=== PATIENT | male | born 1970 | race Caucasian/White ===

== ENCOUNTER 2016-12-29 05:59 | Observation (INO) | payer MEDICARE, MEDICAID ==
[2016-12-29] MEDS ORDERED: Acetaminophen TAB* 325 MG PO ONE (06:21)
[2016-12-29] MEDS ORDERED: NS 0.9% 1000 ML* 1,000 ML IV ONE ×2 (06:21→08:43)
[2016-12-29 06:40] LABS: Hematocrit 36 % (42-52); Hemoglobin 11.6 g/dl (14.0-18.0); Mean Corpuscular HGB Conc 33 g/dl (31-36); Mean Corpuscular Hemoglobin 31 pg (27-31); Mean Corpuscular Volume 94 fL (80-94); Mean Platelet Volume 7 um3 (7.4-10.4); Red Blood Count 3.77 10^6/ul (4.0-5.4); Red Cell Distribution Width 13 % (10.5-15); White Blood Count 20.1 10^3/ul (3.5-10.8)
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
[2016-12-29 06:55] LABS: ALT 20 U/L (7-52); AST 40 U/L (13-39); Albumin 4.5 g/dL (3.2-5.2); Alkaline Phosphatase 49 U/L (34-104); Anion Gap 14 mmol/L (2-11); BUN/Creatinine Ratio 21.8 (8-20); Blood Urea Nitrogen 38 mg/dL (6-24); CO2 Carbon Dioxide 18 mmol/L (22-32); Calcium 9.1 mg/dL (8.6-10.3); Chloride 109 mmol/L (101-111); Creatine Kinase 1594 U/L (10-223); EGFR African American 54.1 (>60); EGFR Non-African American 42.1 (>60); Globulin 2.5 g/dL (2-4); Glucose 99 mg/dL (70-100); Magnesium 2.1 mg/dL (1.9-2.7); Potassium 4.5 mmol/L (3.5-5.0); Sodium 141 mmol/L (133-145)
[2016-12-29 07:16] LABS: Alcohol < 10 mg/dL (<10)
[2016-12-29 07:20] LABS: Benzodiazepine Urine Screen None Detected (None Detect)
[2016-12-29 07:25] LABS: Urine Bacteria Absent (Absent); Urine Bilirubin Negative (Negative); Urine Glucose Negative (Negative); Urine Nitrite Negative (Negative)
--- NOTE | 2016-12-29 08:09 | RAD ---
Indication: Altered mental status. Comparison: June 27, 2012 Technique: Noncontrast CT vertex of skull through foramen magnum. Report: The sulci, ventricles, and basal cisterns are normal for age. Pruett matter white matter differentiation is preserved without evidence for edema. No intra or extra axial hemorrhage is detected. Unremarkable orbital contents. Negative for calvarial or skull base fracture. Negative for scalp hematoma. The visualized paranasal sinuses and mastoid air spaces are clear. IMPRESSION: No evidence for traumatic brain injury or acute intracranial process.
--- NOTE | 2016-12-29 08:11 | RAD ---
Indication: Altered mental status. Fever. Comparison: July 26, 2014 Technique: Upright AP chest 0636 hours Report: Elevated lung volumes and patchy rarefaction of the mid to upper lung zone interstitial markings. No pulmonary consolidation, focal pulmonary lesion, pleural effusion, pneumothorax. The heart, pulmonary vasculature, and mediastinal contours are unremarkable. Unremarkable soft tissue contours and osseous structures. IMPRESSION: Stigmata of probable obstructive lung disease and emphysema. No acute cardiopulmonary process evident.
[2016-12-29] MEDS ORDERED: Iodixanol* (CONTRAST) 320 MG/ML 100 ML SDV IV ONE (08:55)
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
[2016-12-29] MEDS: NS 0.9% 1000 ML* 1,000 ML IV SCH ×2 (13:14→21:36)
[2016-12-29 13:37] LABS: Hematocrit 32 % (42-52); Hemoglobin 10.6 g/dl (14.0-18.0); Mean Corpuscular HGB Conc 33 g/dl (31-36); Mean Corpuscular Hemoglobin 31 pg (27-31); Mean Corpuscular Volume 94 fL (80-94); Mean Platelet Volume 7 um3 (7.4-10.4); Red Blood Count 3.44 10^6/ul (4.0-5.4); Red Cell Distribution Width 14 % (10.5-15)
[2016-12-29 13:52] LABS: BUN/Creatinine Ratio 31.1 (8-20); C Reactive Protein 14.87 mg/L (< 5.00); Calcium 8.4 mg/dL (8.6-10.3); EGFR African American 99.1 (>60); EGFR Non-African American 77.1 (>60); Potassium 4.2 mmol/L (3.5-5.0)
[2016-12-29] MEDS ORDERED: Carisoprodol TAB* 350 MG PO PRN (13:52)
[2016-12-29] MEDS: OXYMORPHONE 5 MG PO SCH ×2 (15:41→21:01)
[2016-12-29] MEDS: Baclofen TAB* 10 MG PO SCH ×2 (15:42→21:01)
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
[2016-12-29] MEDS: tiZANidine TAB* 2 MG PO SCH (21:00)
[2016-12-29] MEDS: celeCOXIB CAP* 100 MG PO SCH (21:02)
[2016-12-30 05:41] LABS: Hematocrit 32 % (42-52); Hemoglobin 10.7 g/dl (14.0-18.0); Mean Corpuscular HGB Conc 34 g/dl (31-36); Mean Corpuscular Hemoglobin 32 pg (27-31); Mean Corpuscular Volume 94 fL (80-94); Mean Platelet Volume 7 um3 (7.4-10.4); Red Blood Count 3.36 10^6/ul (4.0-5.4); Red Cell Distribution Width 14 % (10.5-15); White Blood Count 8.7 10^3/ul (3.5-10.8)
[2016-12-30] MEDS: NS 0.9% 1000 ML* 1,000 ML IV SCH (05:55)
[2016-12-30 05:57] LABS: BUN/Creatinine Ratio 33.8 (8-20); Calcium 8.2 mg/dL (8.6-10.3); EGFR African American 168.6 (>60); EGFR Non-African American 131.1 (>60)
[2016-12-30] MEDS ORDERED: NS 0.9% 1000 ML* 1,000 ML IV SCH (08:15)
[2016-12-30] MEDS: celeCOXIB CAP* 100 MG PO SCH (08:18)
[2016-12-30] MEDS: Baclofen TAB* 10 MG PO SCH ×2 (08:19→13:39)
[2016-12-30] MEDS: tiZANidine TAB* 2 MG PO SCH (08:19)
[2016-12-30] MEDS: OXYMORPHONE 5 MG PO SCH ×2 (08:19→13:39)
[2016-12-30] MEDS ORDERED: DULoxetine DR CAP* 60 MG CAP.DR PO SCH (09:00)
[2016-12-30 16:33] VITALS: BP 135/90
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
== END 2016-12-30 17:30 | disposition home or self-care (01) ==
LOC: ED 05:59 → MEDTELE 10:22
PROVIDERS: ADMIT Internal Medicine; ATTEND Internal Medicine
DX: R41.0 Disorientation, unspecified (principal); R41.82 Altered mental status, unspecified; F15.90 Other stimulant use, unspecified, uncomplicated; G82.50 Quadriplegia, unspecified; N17.9 Acute kidney failure, unspecified; M62.82 Rhabdomyolysis; M54.9 Dorsalgia, unspecified; G89.29 Other chronic pain; D72.829 Elevated white blood cell count, unspecified; K21.9 Gastro-esophageal reflux disease without esophagitis; Z79.899 Other long term (current) drug therapy; Z87.891 Personal history of nicotine dependence
CPT/HCPCS: 36415; 70450; 71010; 71260; 72125; 74177; 80048; 80053; 80307; 80320; 81003; 81015; 82550; 83605; 83735; 85025; 86140; 87040; 96360; 96361; 99284; A9270-GY; G0378; G0480; Q9967

== ENCOUNTER → 2019-01-27 12:48 | Emergency (ER) | payer MEDICARE, MEDICAID ==
--- OUTSIDE RECORDS SUMMARY | 2019-01-27 13:06 | XMS REPORT | Continuity of Care Document ---
:1970 External Reference #:[id number] Author Name Alanna Pan M.D. Address [address] [facility] [place] [address] Care Team Providers Name Role Phone Alanna Pan M.D. Care Team Information Upfitter Unavailable Alanna Pan M.D. Primary Care Physician Unavailable Payers Date Identification Numbers Payment Provider Subscriber Effective: 2007 Policy Number: [id number] [place] Ángel Da Silva Daniel PayID: [id number] [address] [place] [address] Effective: 2007 Policy Number: [id number] Medicare [facility] Ángel Da Silva Daniel Expires: 2018 PayID: [id number] [address] [place] [address] Effective: 2012 Policy Number: [id number] Medicaid [place] Ángel Sanchez PayID: [id number] [address] [facility] [place] [address] Problems Active Problems Provider Date Chronic pain syndrome Alanna Pan M.D. Onset: 07/21/2014 Note: NO NARCOTICS failed drug screen/contract violated Low back pain Alanna Pan M.D. Onset: 07/21/2014 Anxiety state Alanna Pan M.D. Onset: 07/21/2014 Insomnia Alanna Pan M.D. 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 Onset: 01/07 cord lesion between fifth and seventh cervical vertebra Osteoarthritis Alanna Pan M.D. Onset: 06/28/2015 Impaired fasting glycaemia Alanna Pan M.D. Onset: 06/29/2015 Incomplete paraplegia Alanna Pan M.D. Onset: 05/27/2018 Neuralgia Alanna Pan M.D. Onset: 05/27/2018 Contracture of joint of hand Alanna Pan M.D. Onset: 05/27/2018 Family History Date Family Member(s) Observation Comments Father Unknown Mother Unknown Social History Type Date Description Comments Sex Unknown Marital Status Legal Status: Legally Lives With Alone Occupation Disabled Tobacco Use Start: Unknown End: Former Cigarette Smoker quit 2014; 20 years Unknown 1 Pack Daily of smoking ETOH Use Denies alcohol use Tobacco Use Start: Unknown End: Patient is a former Unknown smoker Recreational Drug Use Marijuana Smoking Status Reviewed: 05/27/18 Patient is a former smoker Allergies, Adverse Reactions, Alerts Description No Known Drug Allergies Medications Active Medications SIG Qnty Indications Ordering Provider Date Gabapentin take one tablet 90tabs Alanna Pan, 01/06/2019 600mg by mouth three M.D. Tablets times a day Ibuprofen 1 tab by mouth 90tabs M79.2 Alanna Pan, 01/06/2019 600mg Tablets every 8 hours as M.D. needed pain. take with food Baclofen Take 2 Tablets 240tabs G89.Winston Arteaga 08/27/2017 10mg Tablets By Mouth Brittany Redmond M.D. Times Daily M54.5 Carisoprodol take 1 tablet by 90tabs Alanna Pan M.D. 02/28/2017 350mg Tablets mouth three times a day Acetaminophen 2 tabs by mouth 180tabs Alanna Pan M.D. 01/02/2017 500mg Tablets three times a day as needed Cymbalta 1 by mouth every 30caps G89.4 Jr Redmond, 08/25/[address] Ninfa phan M.D. F41.9 F33.1 Tizanidine HCL Take 1 Tablet By 60tabs G89Peter Pan M.D. 2mg Tablets Mouth Twice A Day M54.5 History Medications Gabapentin Take 2 Capsules 180caps Alanna Pan, 10/30/2018 - 300mg By Mouth Three M.D. 01/06/2019 Capsules Times Daily Valtrex take one by mouth 21tabs Shanelle Stokes 01/02/2018 - 1gm Tablets three times daily KYM Segura 01/05/2019 for 1 week Gabapentin take 2 capsule by 180caps Shanelle Stokes 05/24/2017 - 300mg mouth 3 times KYM Segura 10/30/2018 Capsule daily Gabapentin 1 tab by mouth 60caps [facility], 01/16/2017 - 300mg twice a day M.D. 05/24/2017 Capsules Carisoprodol take 1 tablet by 90tabs M54.5 [facility], 01/02/2017 - 350mg mouth three times M.D. 02/01/2017 Tablets a day G89.4 Gabapentin 1 tab by mouth 30caps [facility], 01/02/2017 - 300mg Capsules every night M.D. 01/16/2017 Cyclobenzaprine HCL take 1/2 - 1 90tabs M54.5 [facility], 10/31/2016 - 10mg tablet by mouth M.D. 10/31/2016 Tablets 3 times a day if needed for muscle spasm G89.4 Celecoxib 1 by mouth 60caps G89.4 [facility], 10/12/2016 - 200mg twice a day M.D. 01/06/2019 Capsules Celecoxib 1 by mouth 60caps G89.4 [facility], 06/27/2016 - 100mg twice a day M.D. 10/12/2016 Capsules Baclofen 1 tab by mouth 120tabs G89.4 [facility], 06/27/2016 - 20mg four times a M.D. 08/27/2017 Tablets day M54.5 Oxycodone-Acetaminophen 1 by mouth 120tabs G89.4 [facility], 08/10/2015 - 5-325mg Tablets q4 hours prn M.D. 09/28/2015 M54.5 Orphenadrine Citrate 1 by mouth 60tabs [facility], 08/09/2015 - ER twice a day as M.D. 09/28/2015 100mg Tablets ER 12HR needed for muscle spasm Oxycodone HCL ER 1 tab by mouth 90tabs 338.4 [facility], 2015 - 10mg Tab three times a M.D. 2015 ER 12H Abuse-Det day Oxymorphone HCL ER 1 tab by mouth 90tabs G89.4 [facility], 2015 - 10mg three a day as M.D. 01/01/2017 Tablets ER 12HR needed M54.5 Carisoprodol take 1 tablet 90tabs M54.5 Sharon Luo, FINANCIAL DEVELOPER 10/06/2014 - 350mg by mouth three 01/01/2017 Tablets times a day G89.4 Melatonin Maximum 1 tab by mouth 780.52 [facility], 08/25/2014 - Strength every night as M.D. 12/08/2014 5mg Tablets needed Mirtazapine 1 tab by mouth 30tabs 780.52 [facility], 07/21/2014 - 15mg every night M.D. 08/25/2014 Tablets Soma 1 tab by mouth 60tabs 724.2 [facility], 07/21/2014 - 350mg Tablets twice a day as M.D. 10/06/2014 needed Baclofen 2 by mouth four 240tabs G89.4 [facility], - 10mg Tablets times a day M.D. 06/27/2016 M54.5 Oxycodone-Acetaminophen 1 by mouth twice 60tabs G89.4 [facility] - 5-325mg a day as needed Maxim MAbbeyDAbbey 06/29/2015 Tablets for breakthrough pain M54.5 Immunizations CPT Code Status Date Vaccine Lot # [id number] Given 05/27/2018 Influenza Virus Vaccine, Recombinant Dna, [id number] [place] [address] Given 05/24/2017 Influenza Vac, Quadrivalent, Slit Virus, Im [id number] 81998 Given 03/28/2016 Influenza Vac, Quadrivalent, Slit Virus, Im [id number] Given 03/30/2015 Influenza Vac, Quadrivalent, Slit Virus, Im [id number] 54513 Given 07/21/2014 Tetanus And Diptheria Adult Preservative Free [id number] >7Yrs 89018 Given 07/21/2014 Influenza vac quadrivalent preservative free 3yrs [id number] and up Vital Signs Date Vital Result Comment 01/06/2019 6:01pm BP Systolic 124 mmHg BP Diastolic 60 mmHg Heart Rate 102 /min Body Temperature 98.1 F Respiratory Rate 16 /min Height 76 inches 6'4" measured 05/27/18 Weight 157.38 lb BMI (Body Mass Index) 19.2 kg/m2 06/13/2018 9:32am BP Systolic 110 mmHg BP Diastolic 70 mmHg Heart Rate 78 /min Body Temperature 98.6 F Respiratory Rate 16 /min Height 76 inches 6'4" measured 05/27/18 Weight 160.00 lb BMI (Body Mass Index) 19.5 kg/m2 05/27/2018 12:11pm BP Systolic 110 mmHg BP Diastolic 60 mmHg Heart Rate 78 /min Body Temperature 97.5 F Respiratory Rate 16 /min Height 76 inches 6'4" measured 05/27/18 Weight 168.00 lb BMI (Body Mass Index) 20.4 kg/m2 01/02/2018 5:49pm BP Systolic 110 mmHg BP Diastolic 70 mmHg Heart Rate 82 /min Body Temperature 97.5 F Respiratory Rate 17 /min 11/22/2017 10:46am BP Systolic 112 mmHg BP Diastolic 82 mmHg Heart Rate 95 /min Body Temperature 99.5 F Height 77.5 inches 6'5.50" Weight 162.00 lb BMI (Body Mass Index) 19.0 kg/m2 05/24/2017 11:11am BP Systolic 140 mmHg BP Diastolic 80 mmHg Heart Rate 84 /min Body Temperature 98.8 F Respiratory Rate 16 /min Height 77.5 inches 6'5.50" Weight 170.00 lb BMI (Body Mass Index) 19.9 kg/m2 01/16/2017 10:07am BP Systolic 118 mmHg BP Diastolic 70 mmHg Heart Rate 92 /min Body Temperature 99.0 F Respiratory Rate 16 /min Height 77.5 inches 6'5.50" Weight 177.12 lb BMI (Body Mass Index) 20.7 kg/m2 10/12/2016 7:02pm BP Systolic 106 mmHg BP Diastolic 60 mmHg Heart Rate 78 /min Body Temperature 97.5 F Respiratory Rate 16 /min Height 77.5 inches 6'5.50" Weight 158.25 lb BMI (Body Mass Index) 18.5 kg/m2 06/27/2016 10:06am BP Systolic 102 mmHg BP Diastolic 70 mmHg Heart Rate 84 /min Body Temperature 97.8 F Height 77.5 inches 6'5.50" Weight 161.00 lb BMI (Body Mass Index) 18.8 kg/m2 03/28/2016 8:46am BP Systolic 100 mmHg BP Diastolic 62 mmHg Heart Rate 78 /min Body Temperature 98.6 F Height 77.5 inches 6'5.50" Weight 163.12 lb BMI (Body Mass Index) 19.1 kg/m2 12/22/2015 10:10am BP Systolic 134 mmHg BP Diastolic 80 mmHg Heart Rate 66 /min Body Temperature 98.8 F Respiratory Rate 16 /min Height 77.5 inches 6'5.50" Weight 170.12 lb BMI (Body Mass Index) 19.9 kg/m2 09/28/2015 1:08pm BP Systolic 110 mmHg BP Diastolic 70 mmHg Heart Rate 84 /min Body Temperature 98.4 F Respiratory Rate 16 /min Height 77.5 inches 6'5.50" Weight 157.00 lb BMI (Body Mass Index) 18.4 kg/m2 06/29/2015 12:59pm BP Systolic 108 mmHg BP Diastolic 70 mmHg Heart Rate 108 /min Body Temperature 98.1 F Respiratory Rate 12 /min Height 77.5 inches 6'5.50" Weight 162.00 lb BMI (Body Mass Index) 19.0 kg/m2 03/30/2015 12:59pm BP Systolic 130 mmHg BP Diastolic 84 mmHg Heart Rate 72 /min Body Temperature 98.0 F Respiratory Rate 16 /min Height 77.5 inches 6'5.50" Weight 154.00 lb BMI (Body Mass Index) 18.0 kg/m2 02/09/2015 12:49pm BP Systolic 106 mmHg BP Diastolic 70 mmHg Heart Rate 88 /min Body Temperature 98.8 F Respiratory Rate 16 /min Height 77.5 inches 6'5.50" Weight 151.00 lb BMI (Body Mass Index) 17.7 kg/m2 2015 6:53pm BP Systolic 110 mmHg BP Diastolic 70 mmHg Heart Rate 84 /min Body Temperature 97.5 F Respiratory Rate 16 /min Height 77.5 inches 6'5.50" Weight 152.00 lb BMI (Body Mass Index) 17.8 kg/m2 12/08/2014 12:49pm BP Systolic 110 mmHg BP Diastolic 70 mmHg Heart Rate 88 /min Body Temperature 97.8 F Respiratory Rate 16 /min Height 77.5 inches 6'5.50" Weight 160.00 lb BMI (Body Mass Index) 18.7 kg/m2 10/06/2014 2:46pm BP Systolic 100 mmHg BP Diastolic 70 mmHg Heart Rate 88 /min Body Temperature 98.7 F Respiratory Rate 20 /min Height 77.5 inches 6'5.50" Weight 161.00 lb BMI (Body Mass Index) 18.8 kg/m2 08/25/2014 2:28pm BP Systolic 108 mmHg BP Diastolic 70 mmHg Heart Rate 100 /min Body Temperature 98.7 F Respiratory Rate 16 /min Height 77.5 inches 6'5.50" Weight 158.00 lb BMI (Body Mass Index) 18.5 kg/m2 07/21/2014 12:47pm BP Systolic 120 mmHg BP Diastolic 88 mmHg Heart Rate 84 /min Body Temperature 98.4 F Height 77.5 inches 6'5.50" Weight 157.00 lb BMI (Body Mass Index) 18.4 kg/m2 Results Test Date Facility Test Result H/L Range Note [facility] 05/27/2018 [facility] Summary Report FINAL 1 Comprehensive Profile [address] [facility] (Summary) [place] [address] (606)- - PDF . Laboratory test 05/27/2018 [facility] PDF [id number] SEE IMAGE finding [address] [place] [address] (60)- - Laboratory test 11/22/2017 [facility] Hemoglobin A1c 5.4 % 4.1-5 finding (767)- - (Fma) .7 Comprehensive 11/22/2017 [facility](a) Sodium 137 mEq/L 134-1 Metabolic Prof 49 Potassium 4.4 mEq/L 3.6-5.5 Chloride 100 mEq/L 94-112 Carbon Dioxide 27 mEq/L 21-32 Glucose 123 mg/dL High 70-105 2 BUN 14 mg/dL 6-26 Creatinine 0.7 mg/dL 0.6-1.4 BUN/Creat Ratio 20.0 CALC 8.0-36.0 Calcium 9.5 mg/dL 8.6-10.2 Total Protein 6.9 g/dL 6.4-8.3 Albumin 4.7 g/dL 3.8-5.5 Globulin 2.2 g/dL 2.0-4.8 A/G Ratio 2.1 CALC 0.6-2.3 Alk. Phosphatase 52 U/L 22-95 Alt (SGPT) 12 U/L 7-35 Ast (Sgot) 12 U/L 5-34 Total Bilirubin 0.2 mg/dL 0.2-1.3 GFR Non- >60 ml/min/1.73m^ >=60 GFR >60 ml/min/1.73m^ >=60 Lipid Profile 11/22/2017 [facility]) Cholesterol 181 mg/dL 120- 200 Triglycerides 82 mg/dL 30-200 HDL Cholesterol 76 mg/dL High 30-70 LDL (Calculated) 89 CALC 0-129 VLDL Cholesterol 16 mg/dL 0-50 HDL Risk Factor 2.4 CALC 0.0-4.4 Laboratory test finding 11/22/2017 Carlos Alcazar([facility]) TSH 1.21 mIU/L 0.50-6.00 CBC Electronic a 11/22/2017 [facility]ge([facility]) WBC 9.6 x10^3/UL 4.0- 10.0 RBC 4.20 x10^6/UL 3.93-6.00 HGB 13.4 g/dL 12.0-17.0 HCT 40 % 35-50 MCV 94.3 fL 80.0-95.0 MCH 31.9 pg 25.6-32.2 MCHC 33.8 g/dL 32.2-36.0 RDW-CV 13.0 % 11.6-14.4 PLT 293 x10^3/UL 163-400 MPV 9.6 fL 9.4-12.4 Emerita# 7.04 x10^3/UL High 1.56-6.13 Lymph# 1.94 x10^3/UL 1.18-3.74 Kingman# 0.47 x10^3/UL 0.24-0.82 Eos # 0.1 x10^3/UL 0.0-0.5 Baso # 0.06 x10^3/UL 0.01-0.08 Emerita% 73.3 % High 34.0-70.0 Lymph % 20.2 % 20.0-52.0 [place]% 4.9 % Low 5.0-12.0 Eos% 0.9 % 0.7-7.0 Baso% 0.6 % 0.1-1.2 Lipid Profile 01/16/2017 [facility]) Cholesterol 200 mg/dL 120- 200 Triglycerides 82 mg/dL 30-200 HDL Cholesterol 95 mg/dL High 30-70 3 LDL (Calculated) 89 CALC 0-129 VLDL Cholesterol 16 mg/dL 0-50 HDL Risk Factor 2.1 CALC 0.0-4.4 Laboratory test finding 01/16/2017 [facility]) TSH 2.05 mIU/L 0.50-6.00 Comprehensive Metabolic 01/16/2017 [facility]) Sodium 139 mEq/L 134-149 Prof Potassium 4.8 mEq/L 3.6-5.5 Chloride 101 mEq/L 94-112 Carbon Dioxide 22 mEq/L 21-32 Glucose 109 mg/dL High 70-105 4 BUN 24 mg/dL 6-26 Creatinine 0.7 mg/dL 0.6-1.4 BUN/Creat Ratio 34.3 CALC 8.0-36.0 Calcium 8.9 mg/dL 8.6-10.2 Total Protein 6.7 g/dL 6.4-8.3 Albumin 4.3 g/dL 3.8-5.5 Globulin 2.4 g/dL 2.0-4.8 A/G Ratio 1.8 CALC 0.6-2.3 Alk. Phosphatase 61 U/L 22-95 Alt (SGPT) 25 U/L 7-35 Ast (Sgot) 19 U/L 5-34 Total Bilirubin 0.2 mg/dL 0.2-1.3 GFR Non- >60 ml/min/1.73m^ >=60 GFR >60 ml/min/1.73m^ >=60 Complete Blood Count 01/16/2017 [facility] Alc[facility]) WBC 4.8 x10^3/UL 3.6 -9.6 RBC 3.83 x10^6/UL Low 3.90-5.70 5 HGB 12.5 g/dL 12.1-17.2 HCT 36 % 36-50 MCV 94.0 fL 82.2-97.4 MCH 32.6 pg 27.6-33.3 MCHC 34.5 g/dL 33.0-35.5 RDW 15.1 % High 11.6-13.7 PLT 371 x10^3/UL 150-400 MPV 6.5 fL Low 7.4-10.4 Gran # 2.6 x10^3/UL 1.5-7.2 Lymph# 1.9 x10^3/UL 0.7-4.9 Kingman# 0.3 x10^3/UL 0.1-0.9 Gran % 53.6 % 42.2-75.2 Lymph % 40.0 % 20.5-51.1 King[place]% 6.4 % 1.7-9.3 Laboratory test 01/16/2017 [facility] Hemoglobin A1c 5.2 % 4.1-5.7 finding (607)- - (Fma) Laboratory test 12/29/2016 [facility] Lactic Acid 1.0 mmol/L N 0.5-2.0 6 finding Urinalysis Profile 12/29/2016 [facility] Urine Color Yellow N Urine Appearance Cloudy N Urine Specific Hines 1.017 N 1.010-1.030 Urine pH 5.0 N 5-9 Urine Urobilinogen Negative N Negative Urine Ketones Trace Abnormal Negative Urine Protein Negative N Negative Urine Leukocytes Negative N Negative Urine Blood 3+ Abnormal Negative Urine Nitrite Negative N Negative Urine Bilirubin Negative N Negative Urine Glucose Negative N Negative Urine White Blood Cell Trace(0-5/hpf) N Absent Urine Red Blood Cell Trace(0-2/hpf) N Absent Urine Bacteria Absent N Absent Urine Squamous Epithelial Cell Present Abnormal Absent CBC Auto Diff 12/29/2016 [facility] White Blood Count 20.1 10^3/uL High 3.5- 10.8 Red Blood Count 3.77 10^6/uL Low 4.0-5.4 Hemoglobin 11.6 g/dL Low 14.0-18.0 Hematocrit 36 % Low 42-52 Mean Corpuscular Volume 94 fL N 80-94 Mean Corpuscular Hemoglobin 31 pg N 27-31 Mean Corpuscular HGB Conc 33 g/dL N 31-36 Red Cell Distribution Width 13 % N 10.5-15 Platelet Count 258 10^3/uL N 150-450 Mean Platelet Volume 7 um3 Low 7.4-10.4 Abs Neutrophils 18.0 10^3/uL High 1.5-7.7 Abs Lymphocytes 1.0 10^3/uL N 1.0-4.8 Abs Monocytes 1.0 10^3/uL High 0-0.8 Abs Eosinophils 0 10^3/uL N 0-0.6 Abs Basophils 0.1 10^3/uL N 0-0.2 Abs Nucleated RBC 0 10^3/uL N Granulocyte % 89.5 % High 38-83 Lymphocyte % 5.0 % Low 25-47 Monocyte % 5.0 % N 1-9 Eosinophil % 0 % N 0-6 Basophil % 0.5 % N 0-2 Nucleated Red Blood Cells % 0 N Urine Drug 12/29/2016 [facility] Amphetamine Ur Presumptive Posi Abnormal None Detect 7 SCR ED & Pain Screen <SEE NOTE> Clinic Barbiturates Urine Screen None Detected N None Detect Benzodiazepine Urine Screen None Detected N None Detect Urine Cannabinoids Screen Presumptive Posi <SEE NOTE> Abnormal None Detect 8 Urine Cocaine Screen None Detected N None Detect Urine Opiates Screen None Detected N None Detect Urine Phencyclidine Screen None Detected N None Detect 9 Comp Metabolic Panel 12/29/2016 [facility] Sodium 141 mmol/L N 133-145 Potassium 4.5 mmol/L N 3.5-5.0 Chloride 109 mmol/L N 101-111 Co2 Carbon Dioxide 18 mmol/L Low 22-32 Anion Gap 14 mmol/L High 2-11 Glucose 99 mg/dL N 70-100 Blood Urea Nitrogen 38 mg/dL High 6-24 Creatinine 1.74 mg/dL High 0.67-1.17 BUN/Creatinine Ratio 21.8 High 8-20 Calcium 9.1 mg/dL N 8.6-10.3 Total Protein 7.0 g/dL N 6.4-8.9 Albumin 4.5 g/dL N 3.2-5.2 Globulin 2.5 g/dL N 2-4 Albumin/Globulin Ratio 1.8 N 1-3 Total Bilirubin 0.50 mg/dL N 0.2-1.0 Alkaline Phosphatase 49 U/L N 34-104 Alt 20 U/L N 7-52 Ast 40 U/L High 13-39 Egfr Non- 42.1 N >60 Egfr 54.1 N >60 10 Laboratory test finding 12/29/2016 [facility] Magnesium 2.1 mg/dL N 1.9-2.7 Creatine Kinase(CK) 1594 U/L High 10-223 Alcohol < 10 mg/dL N <10 [facility] Comprehensive 10/31/2016 [facility] Summary FINAL [address] [place] [address] (112)- - PDF . Laboratory test 10/31/2016 [facility] PDF [id number] SEE IMAGE finding [address] [place] [address] (186)- - [facility](R) 10/17/2016 [facility] Report Summary FINAL 12 Select 13 (MW) [address] [place] [address] (696)- - PDF . Laboratory test 10/17/2016 [facility] PDF [id number] SEE IMAGE finding [address] [place] [address] (607)- - Laboratory test 10/16/2016 [facility] Hemoglobin A1c 5.3 % % 4.1-5 finding (607)- - (Fma) .7 Comprehensive 10/16/2016 [facility]) Sodium 141 mEq/L 134-1 Metabolic Prof 49 Potassium 4.4 mEq/L 3.6-5.5 Chloride 108 mEq/L 94-112 Carbon Dioxide 23 mEq/L 21-32 Glucose 128 mg/dL High 70-105 13 BUN 18 mg/dL 6-26 Creatinine 0.7 mg/dL 0.6-1.4 BUN/Creat Ratio 25.7 CALC 8.0-36.0 Calcium 8.9 mg/dL 8.6-10.2 Total Protein 7.2 g/dL 6.4-8.3 Albumin 4.5 g/dL 3.8-5.5 Globulin 2.7 g/dL 2.0-4.8 A/G Ratio 1.7 CALC 0.6-2.3 Alk. Phosphatase 51 U/L 22-95 Alt (SGPT) 11 U/L 7-35 Ast (Sgot) 14 U/L 5-34 Total Bilirubin 0.3 mg/dL 0.2-1.3 GFR Non- >60 ml/min/1.73m^ >=60 GFR >60 ml/min/1.73m^ >=60 Lipid Profile 10/16/2016 [facility]) Cholesterol 165 mg/dL 120- 200 Triglycerides 52 mg/dL 30-200 HDL Cholesterol 78 mg/dL High 30-70 14 LDL (Calculated) 77 CALC 0-129 VLDL Cholesterol 10 mg/dL 0-50 HDL Risk Factor 2.1 CALC 0.0-4.4 Complete Blood Count 10/16/2016 [facility] Alcazar(a) WBC 5.5 x10^3/UL 3.6 -9.6 RBC 4.37 x10^6/UL 3.90-5.70 HGB 14.2 g/dL 12.1-17.2 HCT 42 % 36-50 MCV 97.0 fL 82.2-97.4 MCH 32.5 pg 27.6-33.3 MCHC 33.6 g/dL 33.0-35.5 RDW 14.0 % High 11.6-13.7 PLT 309 x10^3/UL 150-400 MPV 7.0 fL Low 7.4-10.4 Gran # 2.7 x10^3/UL 1.5-7.2 Lymph# 2.5 x10^3/UL 0.7-4.9 Kingman# 0.3 x10^3/UL 0.1-0.9 Gran % 47.7 % 42.2-75.2 Lymph % 46.4 % 20.5-51.1 Kingman% 5.9 % 1.7-9.3 Laboratory test 10/16/2016 [facility] Alcazar(fma) TSH 2.56 mIU/L 0.50-6.00 finding [facility](R) 06/27/2016 [facility] Report Summary FINAL 15 Select 13 (MW) [address] [place] [address] (704)- - PDF . Laboratory test 06/27/2016 [facility] PDF [id number] SEE IMAGE finding [address] [place] [address] (574)- - [facility] 09/29/2015 [facility] Summary FINAL 16, [address] [place] [address] (728)- - PDF . Laboratory test 09/29/2015 [facility] PDF [id number] SEE IMAGE finding [facility] [place] [address] (441)- - Laboratory test 06/29/2015 [facility] PDF [id number] SEE IMAGE [address] [place] [phone] (620)- - [facility](R) 06/29/2015 [facility] Report Summary FINAL 19 Select 13 (MW) [address] [place] [address] (708)- - PDF . Laboratory test 06/29/2015 [facility] Hemoglobin A1c 5.3 % 4.1-5.7 finding (857)- - (Fma/CMC,CX) Lipid Profile 06/29/2015 Carlos Alcazar(fma) Cholesterol 205 mg/dL High 120-200 Triglycerides 85 mg/dL 30-200 HDL Cholesterol 79 mg/dL High 30-70 20 LDL (Calculated) 109 CALC 0-129 VLDL Cholesterol 17 mg/dL 0-50 HDL Risk Factor 2.6 CALC 0.0-4.4 Complete Blood Count 06/29/2015 [facility]) WBC 8.0 x10^3/UL 3.6 -9.6 RBC 4.90 x10^6/UL 3.90-5.70 HGB 16.1 g/dL 12.1-17.2 HCT 48 % 36-50 MCV 97.0 fL 82.2-97.4 MCH 32.8 pg 27.6-33.3 MCHC 33.7 g/dL 33.0-35.5 RDW 13.2 % 11.6-13.7 PLT 416 x10^3/UL High 150-400 21 MPV 6.9 fL Low 7.4-10.4 Gran # 4.4 x10^3/UL 1.5-7.2 Lymph# 3.3 x10^3/UL 0.7-4.9 Kingman# 0.3 x10^3/UL 0.1-0.9 Gran % 53.2 % 42.2-75.2 Lymph % 42.4 % 20.5-51.1 King[place]% 4.4 % 1.7-9.3 Comprehensive Metabolic 06/29/2015 [facility]) Sodium 136 mEq/L 134-149 Prof Potassium 4.6 mEq/L 3.6-5.5 Chloride 96 mEq/L 94-112 Carbon Dioxide 29 mEq/L 21-32 Glucose 112 mg/dL High 70-105 22 BUN 12 mg/dL 6-26 Creatinine 0.8 mg/dL 0.6-1.4 BUN/Creat Ratio 15.0 CALC 8.0-36.0 Calcium 9.8 mg/dL 8.6-10.2 Total Protein 8.0 g/dL 6.4-8.3 Albumin 5.1 g/dL 3.8-5.5 Globulin 2.9 g/dL 2.0-4.8 A/G Ratio 1.8 CALC 0.6-2.3 Alk. Phosphatase 63 U/L 22-95 Alt (SGPT) 22 U/L 7-35 Ast (Sgot) 21 U/L 5-34 Total Bilirubin 0.3 mg/dL 0.2-1.3 GFR Non- >60 ml/min/1.73m^ >=60 GFR >60 ml/min/1.73m^ >=60 CBC Electronic (a) 07/21/2014 [facility] WBC 6.6 3.6-9.6 (607)- - RBC 4.57 3.90-5.70 Hemoglobin (Fma/CMC/CTX) 14.9 g/dL 12.1 - 17.2 Hematocrit (Fma/CMC/CTX) 44.3 % 36.1 - 50.3 Platelets 273 10^3/ul 150-400 Lymph% 35.9 % 17.0-48.0 Mixed% 4.8 Neutrophils % 59.3 Mean Corpuscular Vol 97 82.2-97.4 Mean Corpuscular Hemoglobin 32.7 27.6-33.3 Mean Corpuscular Hemo Concen 33.7 32.0-36.0 RDW 12.9 11.6-13.7 Mean Platelet Volume 6.2 5.5-11.0 Comprehensive Metabolic 07/21/2014 [facility]) Sodium 138 mEq/L 134-149 Prof Potassium 4.5 mEq/L 3.6-5.5 Chloride 103 mEq/L 94-112 Carbon Dioxide 24 mEq/L 21-32 Glucose 118 mg/dL High 70-105 23 BUN 10 mg/dL 6-26 Creatinine 0.7 mg/dL 0.6-1.4 BUN/Creat Ratio 14.3 CALC 8.0-36.0 Calcium 9.7 mg/dL 8.6-10.2 Total Protein 8.0 g/dL 6.4-8.3 Albumin 5.0 g/dL 3.8-5.5 Globulin 3.0 g/dL 2.0-4.8 A/G Ratio 1.7 CALC 0.6-2.3 Alk. Phosphatase 55 U/L 22-95 Alt (SGPT) 16 U/L 7-35 Ast (Sgot) 17 U/L 5-34 Total Bilirubin 0.3 mg/dL 0.2-1.3 Lipid Profile 07/21/2014 [facility] Alcazar(a) Cholesterol 177 mg/dL 120- 200 Triglycerides 83 mg/dL 30-200 HDL Cholesterol 67 mg/dL 30-70 LDL (Calculated) 93 CALC 0-129 VLDL Cholesterol 17 mg/dL 0-50 HDL Risk Factor 2.6 CALC 0.0-4.4 Laboratory test finding 07/21/2014 Carlos Alcazar(fma) TSH 1.60 mIU/L 0.50-6.00 1 TOXASSURE COMP DRUG ANALYSIS,UR Test Result Flag Units Drug Present and Declared for Prescription Verification Gabapentin PRESENT EXPECTED Baclofen PRESENT EXPECTED Drug Present not Declared for Prescription Verification Carboxy-THC 98 UNEXPECTED ng/mg creat Carboxy-THC is a metabolite of tetrahydrocannabinol (THC). Source of THC is most commonly illicit, but THC is also present in a scheduled prescription medication. Oxymorphone 3429 UNEXPECTED ng/mg creat Sources of oxymorphone include scheduled prescription medications; it is also an expected metabolite of oxycodone. Drug Absent but Declared for Prescription Verification Carisoprodol Not Detected UNEXPECTED Tizanidine Not Detected UNEXPECTED Tizanidine, as indicated in the declared medication list, is not always detected even when used as directed. Duloxetine Not Detected UNEXPECTED Acetaminophen Not Detected UNEXPECTED Acetaminophen, as indicated in the declared medication list, is not always detected even when used as directed. Test Result Flag Units Ref Range Creatinine 139 mg/dL >=20 Declared Medications: The flagging and interpretation on this report are based on the following declared medications. Unexpected results may arise from inaccuracies in the declared medications. Note: The testing scope of this panel includes these medications: Baclofen Carisoprodol Duloxetine (Cymbalta) Gabapentin Note: The testing scope of this panel does not include small to moderate amounts of these reported medications: Acetaminophen Tizanidine Note: The testing scope of this panel does not include following reported medications: Celecoxib Valacyclovir (Valtrex) For clinical consultation, please call . 2 RESULTS VERIFIED BY REPEAT ANALYSIS 3 RESULTS VERIFIED BY REPEAT ANALYSIS 4 RESULTS VERIFIED BY REPEAT ANALYSIS 5 RESULTS VERIFIED BY REPEAT ANALYSIS 6 [place] Severe Sepsis and Septic Shock Management Bundle Measure requires all lactic acids initially measuring >2.0 mmol/L be repeated. 7 Presumptive Positive Presumptive positive results are unconfirmed. 8 Presumptive Positive Presumptive positive results are unconfirmed. 9 The urine specimen was tested at the listed cutoffs: Drug class test level (ng/mL) Amphetamines 500 Barbiturates 200 Benzodiazepine metabolites 200 Cocaine metabolites 150 Cannabinoids 50 Opiates 300 Pcp 25 Specimen was received without chain of custody. Results should be used for medical purposes only. 10 Because ethnic data is not always readily available, this report includes an eGFR for both -Americans and non- Americans. The National Kidney Disease Education Program (NKDEP) does not endorse the use of the MDRD equation for patients that are not between the ages of 18 and 70, are , have extremes of body size, muscle mass, or nutritional status, or are non- or non-. According to the National Kidney Foundation, irrespective of diagnosis, the stage of the disease is based on the level of kidney function: Stage Description GFR(mL/min/1.73 m(2)) 1 Kidney damage with normal or decreased GFR 90 2 Kidney damage with mild decrease in GFR 60-89 3 Moderate decrease in GFR 30-59 4 Severe decrease in GFR 15-29 5 Kidney failure <15 (or dialysis) 11 TOXASSURE COMP DRUG ANALYSIS,UR Test Result Flag Units Drug Present Carboxy-THC 87 ng/mg creat Carboxy-THC is a metabolite of tetrahydrocannabinol (THC). Source of THC is most commonly illicit, but THC is also present in a scheduled prescription medication. Oxymorphone 2805 ng/mg creat Sources of oxymorphone include scheduled prescription medications; it is also an expected metabolite of oxycodone. Baclofen PRESENT Duloxetine PRESENT Acetaminophen PRESENT Diphenhydramine PRESENT Test Result Flag Units Ref Range Creatinine 116 mg/dL >=20 Declared Medications: Medication list was not provided. For clinical consultation, please call . 12 TOXASSURE SELECT 13 (MW) Test Result Flag Units Drug Present and Declared for Prescription Verification Oxymorphone 5475 EXPECTED ng/mg creat Oxymorphone may be administered as a scheduled prescription medication. Oxymorphone is also an expected metabolite of oxycodone; oxycodone and/or its metabolites are also present in this specimen. Drug Present not Declared for Prescription Verification Carboxy-THC 149 UNEXPECTED ng/mg creat Carboxy-THC is a metabolite of tetrahydrocannabinol (THC). Source of THC is most commonly illicit, but THC is also present in a scheduled prescription medication. Oxycodone 279 UNEXPECTED ng/mg creat Noroxycodone 143 UNEXPECTED ng/mg creat Sources of oxycodone include scheduled prescription medications. Noroxycodone is an expected metabolite of oxycodone. Test Result Flag Units Ref Range Creatinine 92 mg/dL >=20 Declared Medications: The flagging and interpretation on this report are based on the following declared medications. Unexpected results may arise from inaccuracies in the declared medications. Note: The testing scope of this panel includes these medications: Oxymorphone Note: The testing scope of this panel does not include following reported medications: Baclofen Carisoprodol Celecoxib Duloxetine (Cymbalta) Tizanidine For clinical consultation, please call . 13 RESULTS VERIFIED BY REPEAT ANALYSIS 14 consistent w/ previous results 15 TOXASSURE SELECT 13 (MW) Test Result Flag Units Drug Present and Declared for Prescription Verification Oxymorphone 121 EXPECTED ng/mg creat Oxymorphone may be administered as a scheduled prescription medication. Oxymorphone is also an expected metabolite of oxycodone; oxycodone and/or its metabolites are also present in this specimen. Drug Present not Declared for Prescription Verification Carboxy-THC >1031 UNEXPECTED ng/mg creat Carboxy-THC is a metabolite of tetrahydrocannabinol (THC). Source of THC is most commonly illicit, but THC is also present in a scheduled prescription medication. Noroxycodone 261 UNEXPECTED ng/mg creat Noroxycodone is an expected metabolite of oxycodone. Sources of oxycodone include scheduled prescription medications. Test Result Flag Units Ref Range Creatinine 97 mg/dL >=20 Declared Medications: The flagging and interpretation on this report are based on the following declared medications. Unexpected results may arise from inaccuracies in the declared medications. Note: The testing scope of this panel includes these medications: Oxymorphone Note: The testing scope of this panel does not include following reported medications: Baclofen Carisoprodol Celecoxib Duloxetine (Cymbalta) Tizanidine For clinical consultation, please call . 16 URINE IN STERILE CUP 17 TOXASSURE COMP DRUG ANALYSIS,UR Test Result Flag Units Drug Present and Declared for Prescription Verification Oxymorphone 524 EXPECTED ng/mg creat Sources of oxymorphone include scheduled prescription medications; it is also an expected metabolite of oxycodone. Baclofen PRESENT EXPECTED Duloxetine PRESENT EXPECTED Drug Present not Declared for Prescription Verification Carboxy-THC 495 UNEXPECTED ng/mg creat Carboxy-THC is a metabolite of tetrahydrocannabinol (THC). Source of THC is most commonly illicit, but THC is also present in a scheduled prescription medication. Acetaminophen PRESENT UNEXPECTED Diphenhydramine PRESENT UNEXPECTED Drug Absent but Declared for Prescription Verification Carisoprodol Not Detected UNEXPECTED Tizanidine Not Detected UNEXPECTED Tizanidine, as indicated in the declared medication list, is not always detected even when used as directed. Test Result Flag Units Ref Range Creatinine 91 mg/dL >=20 Declared Medications: The flagging and interpretation on this report are based on the following declared medications. Unexpected results may arise from inaccuracies in the declared medications. Note: The testing scope of this panel includes these medications: Baclofen Carisoprodol Duloxetine (Cymbalta) Oxymorphone Note: The testing scope of this panel does not include small to moderate amounts of these reported medications: Tizanidine For clinical consultation, please call . 18 1 urine temp cup 19 TOXASSURE SELECT 13 (MW) Test Result Flag Units Drug Present and Declared for Prescription Verification Oxymorphone 96 EXPECTED ng/mg creat Sources of oxymorphone include scheduled prescription medications; it is also an expected metabolite of oxycodone. Drug Present not Declared for Prescription Verification Carboxy-THC 152 UNEXPECTED ng/mg creat Carboxy-THC is a metabolite of tetrahydrocannabinol (THC). Source of THC is most commonly illicit, but THC is also present in a scheduled prescription medication. Test Result Flag Units Ref Range Creatinine 192 mg/dL >=20 Declared Medications: The flagging and interpretation on this report are based on the following declared medications. Unexpected results may arise from inaccuracies in the declared medications. Note: The testing scope of this panel includes these medications: Oxymorphone Note: The testing scope of this panel does not include following reported medications: Carisoprodol Duloxetine (Cymbalta) For clinical consultation, please call . 20 RESULTS VERIFIED BY REPEAT ANALYSIS 21 RESULTS VERIFIED BY REPEAT ANALYSIS 22 RESULTS VERIFIED BY REPEAT ANALYSIS 23 NON-FASTING Procedures Date Code Description Status 01/29/2018 [id number] Colonoscopy Completed Encounters Type Date Location Provider Dx Diagnosis Office Visit 06/13/2018 Main Office Alanna Pan M.D. 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, incomplete G89.4 Chronic pain syndrome M25.511 Pain in right shoulder Office Visit 05/27/2018 12:00p Main Office Alanna Pan Z00.01 Encounter for [place] general adult medical exam w abnormal findings G89.4 Chronic pain syndrome F41.9 Anxiety disorder, unspecified M25.511 Pain in right shoulder M25.552 Pain in left hip M24.542 Contracture, left hand M79.2 Neuralgia and neuritis, unspecified G82.22 Paraplegia, incomplete Z23 Encounter for immunization Office Visit 01/02/2018 5:45p Main Office Shanelle Stokes B02.9 Zoster without [place], [employer] STRAIGHTENER complications G89.4 Chronic pain syndrome M79.2 Neuralgia and neuritis, unspecified Office Visit 11/22/2017 10:40a Main Office Alanna Pan M.D. G89.4 Chronic pain syndrome F41.9 Anxiety disorder, unspecified R73.01 Impaired fasting glucose Z12.11 Encounter for screening for malignant neoplasm of colon S23.41xA Sprain of ribs, initial encounter Office Visit 05/24/2017 11:20a Main Office Alanna Pan M.D. G89.4 Chronic pain syndrome F41.9 Anxiety disorder, unspecified M25.561 Pain in right knee M54.5 Low back pain Z23 Encounter for immunization Office Visit 10/12/2016 7:00p Main Office Alanna Pan M.D. G89.4 Chronic pain syndrome R73.01 Impaired fasting glucose F41.9 Anxiety disorder, unspecified M54.5 Low back pain Office Visit 06/27/2016 10:30a Main Office Alanna Pan M.D. G89.4 Chronic pain syndrome M54.5 Low back pain F41.9 Anxiety disorder, unspecified R73.01 Impaired fasting glucose Office Visit 03/28/2016 9:00a [facility] [place] Z23 Encounter for [place] immunization G89.4 Chronic pain syndrome M54.5 Low back pain M25.552 Pain in left hip Office Visit 12/22/2015 10:00a Main Office MARYCRUZ Saxena G89.4 Chronic pain syndrome F41.9 Anxiety disorder, unspecified Office Visit 09/28/2015 1:00p Main Office Alanna Pan M.D. 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 G89.4 Chronic pain syndrome M54.5 Low back pain F41.9 Anxiety disorder, unspecified R73.01 Impaired fasting glucose Z13.220 Encounter for screening for lipoid disorders Office Visit 03/30/2015 1:00p Main Office Alanna Pan M.D. 338.4 Chronic Pain Syndrome 724.2 Lumbago 300.00 Anxiety State Unspec 783.22 Underweight 719.45 Pain Joint Pelvic Region & Thigh V04.81 Need For Prophylactic Vaccination & Inoculation/Influenza Office Visit 02/09/2015 1:00p Main Office Alanna Pan M.D. 338.4 Chronic Pain Syndrome 724.2 Lumbago 300.00 Anxiety State Unspec 783.22 Underweight Office Visit 2015 7:10p Main Office Alanna Pan M.D. 338.4 Chronic Pain Syndrome 724.2 Lumbago Office Visit 12/08/2014 1:00p Main Office Alanna Pan M.D. 338.4 Chronic Pain Syndrome 724.2 Lumbago 780.52 Insomnia Unspecified 300.00 Anxiety State Unspec Office Visit 10/06/2014 2:40p Main Office Alanna Pan M.D. 338.4 Chronic Pain Syndrome 724.2 Lumbago Office Visit 08/25/2014 2:40p Main Office Alanna Pan M.D. 338.4 Chronic Pain Syndrome 724.2 Lumbago 780.52 Insomnia Unspecified 300.00 Anxiety State Unspec Office Visit 07/21/2014 1:00p Main Office Alanna Pan V70.0 Examination General [facility] 338.4 Chronic Pain Syndrome 724.2 Lumbago 300.00 Anxiety State Unspec 780.52 Insomnia Unspecified V04.81 Need For Prophylactic Vaccination & Inoculation/Influenza V06.5 Tetanus Diphtheria (DT) Plan of Treatment 01/06/2019 - Alanna Pan M.D.K02.9 Dental caries, unspecifiedComments:refer for possible removal, denies drug use and bvarnvkE95.22 Paraplegia, incompleteComments:switch to gabapentin 600mg tab, ibuprofen and acetaminophen prescribed; continue soma and cymbaltaFollow up:6 moM24.542 Contracture, left handM79.2 Neuralgia and neuritis, unspecifiedNew Medication:Ibuprofen 600 mg - 1 tab by mouth every 8 hours as needed pain. take with foodNew Labs:CBC Electronic ([facility]), Ordered: 01/06/19CCS-Comp And Lipid ([facility]), Ordered: TSH ([facility]), Ordered: 01/06/19Free T4 ([facility]), Ordered: Sedimentation Rate, Ordered: 01/06/19CRP, Ordered: 01/06/19Comments:Consider reaching out to [facility] [phone] for pain managementFollow up: udkakyqsV25.4 Chronic pain syndromeComments:discussed [facility] and given phone numberAllComments:Medication Management Patient Understands medications he 's taking? Yes No Are there Barriersto Adherence? Yes No Has the patient been asked about herbal supplements and therapies, and OTC meds? Yes No
[2019-01-27 14:34] VITALS: BP 167/69
== END | disposition left against medical advice (07) ==
LOC: ED 12:48
DX: Z53.21 Procedure and treatment not carried out due to patient leaving prior to being seen by health care provider (principal)
CPT/HCPCS: 99281

== ENCOUNTER 2019-02-03 16:44 | Inpatient (IN) | payer MEDICARE, MEDICAID ==
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
[2019-02-03] MEDS ORDERED: NS 0.9% 1000 ML** 1,000 ML IV ONE (16:55)
[2019-02-03 17:31] LABS: ABS Basophils 0.1 10^3/ul (0-0.2); ABS Eosinophils 0.1 10^3/ul (0-0.6); ABS Lymphocytes 1.5 10^3/ul (1.0-4.8); ABS Monocytes 0.6 10^3/ul (0-0.8); ABS Neutrophils 7.9 10^3/ul (1.5-7.7); Hematocrit 35 % (42-52); Lymphocyte % 14.6 %; Mean Corpuscular HGB Conc 34 g/dL (31-36); Mean Corpuscular Hemoglobin 33 pg (27-31); Mean Corpuscular Volume 97 fL (80-94); Mean Platelet Volume 6.7 fL (7.4-10.4); Platelet Count 265 10^3/uL (150-450); Red Blood Count 3.63 10^6 /uL (4.18-5.48); Red Cell Distribution Width 14 % (10-15); White Blood Count 10.2 10^3/uL (3.5-10.8)
[2019-02-03 17:47] LABS: ALT 12 U/L (7-52); AST 15 U/L (13-39); Albumin/Globulin Ratio 1.7 (1-3); Alkaline Phosphatase 46 U/L (34-104); Anion Gap 5 mmol/L (2-11); BUN/Creatinine Ratio 30.3 (8-20); Blood Urea Nitrogen 23 mg/dL (6-24); CO2 Carbon Dioxide 23 mmol/L (22-32); Calcium 8.8 mg/dL (8.6-10.3); Chloride 117 mmol/L (101-111); EGFR African American 130.8 (>60); EGFR Non-African American 108.1 (>60); Globulin 2.3 g/dL (2-4); Glucose 114 mg/dL (70-100); Potassium 3.9 mmol/L (3.5-5.0); Sodium 145 mmol/L (135-145); Total Protein 6.3 g/dL (6.4-8.9)
--- OUTSIDE RECORDS SUMMARY | 2019-02-03 18:04 | XMS REPORT | Continuity of Care Document ---
:1970 External Reference #:[id number] Author Name Mary Adams NP Address [address] [place] [address] Care Team Providers Name Role Phone Alanna Pan M.D. Care Team Information Comber Tender Unavailable Alanna Pan M.D. Primary Care Physician Unavailable Payers Date Identification Numbers Payment Provider Subscriber Effective: 2007 Policy Number: [id number] [place] Ángel Da Silva Daniel PayID: [id number] [address] [place] [address] Effective: 2007 Policy Number: [id number] [place] Ángel Sanchez Expires: 2018 PayID: [id number] [address] [place] [address] Effective: 2012 Policy Number: [id number] Medicaid [place] Ángel Da Silva Daniel PayID: [id number] [address] [facility] [place] [address] Problems Active Problems Provider Date Chronic pain [...] Recreational Drug Use Marijuana Smoking Status Reviewed: 01/28/19 Patient is a former smoker Allergies, Adverse [...] take with food Baclofen Take 2 Tablets 720tabs G89.Winston Arteaga 08/27/2017 10mg Tablets By Mouth Brittany Redmond M.D. Times Daily M54.5 Carisoprodol take 1 tablet by 90tabs Mary Adams, 02/28/2017 350mg Tablets mouth three times DREDGE HAND a day Acetaminophen 2 tabs by mouth 180tabs Alanna Pan M.D. 01/02/2017 500mg Tablets three times a day as needed Cymbalta 1 by mouth every 30caps G89.4 Jr Redmond, 08/25/[address] Ninfa phan M.D. F41.9 F33.1 Tizanidine HCL Take 1 Tablet By 60tabs G89.4 Alanna Pan M.D. 2mg Tablets Mouth Twice A [...] daily Gabapentin 1 tab by mouth 60caps [facility], 01/16/2017 - 300mg twice a day M.D. 05/24/2017 Capsules Carisoprodol take 1 tablet by 90tabs M54.5 [facility], 01/02/2017 - 350mg mouth three times M.D. 02/01/2017 Tablets a day G89.4 Gabapentin 1 tab by mouth 30caps [facility], 01/02/2017 - 300mg Capsules every night M.D. 01/16/2017 Cyclobenzaprine HCL take 1/2 - 1 90tabs M54.5 [facility], 10/31/2016 - 10mg tablet by mouth M.D. 10/31/2016 Tablets 3 times a day if needed for muscle spasm G89.4 Celecoxib 1 by mouth 60caps G89.4 [facility], 10/12/2016 - 200mg twice a day M.D. 01/06/2019 Capsules Celecoxib 1 by mouth 60caps G89.4 [facility], 06/27/2016 - 100mg twice a day M.D. 10/12/2016 Capsules Baclofen 1 tab by mouth 120tabs G89.4 [facility], 06/27/2016 - 20mg four times a M.D. 08/27/2017 Tablets day M54.5 Oxycodone-Acetaminophen 1 by mouth 120tabs G89.4 [facility], 08/10/2015 - 5-325mg Tablets q4 hours prn M.D. 09/28/2015 M54.5 Orphenadrine Citrate 1 by mouth 60tabs [facility], 08/09/2015 - ER twice a day as M.D. 09/28/2015 100mg Tablets ER 12HR needed for muscle spasm Oxycodone HCL ER 1 tab by mouth 90tabs 338.4 [facility], 2015 - 10mg Tab three times a M.D. 2015 ER 12H Abuse-Det day Oxymorphone HCL ER 1 tab by mouth 90tabs G89.4 [facility], 2015 - 10mg three a day as M.D. 01/01/2017 Tablets ER 12HR needed M54.5 Carisoprodol take 1 tablet 90tabs M54.5 Sharon Luo, [employer] 10/06/2014 - 350mg by mouth three 01/01/2017 Tablets times a day G89.4 Melatonin Maximum 1 tab by mouth 780.52 [facility], 08/25/2014 - Strength every night as M.D. 12/08/2014 5mg Tablets needed Mirtazapine 1 tab by mouth 30tabs 780.52 [facility], 07/21/2014 - 15mg every night M.D. 08/25/2014 Tablets Soma 1 tab by mouth 60tabs 724.2 [facility], 07/21/2014 - 350mg Tablets twice a day as M.D. 10/06/2014 needed Baclofen 2 by mouth four 240tabs G89.4 [facility], - 10mg Tablets times a day M.D. 06/27/2016 M54.5 Oxycodone-Acetaminophen 1 by mouth twice 60tabs G89.4 [facility] - 5-325mg a day as needed Radha PanDAbbey 06/29/2015 Tablets for breakthrough pain M54.5 Immunizations CPT Code Status Date Vaccine Lot # [id number] Given 05/27/2018 Influenza Virus Vaccine, Recombinant Dna, [id number] [place] [address] Given 05/24/2017 Influenza Vac, Quadrivalent, Slit Virus, Im [id number] Given 03/28/2016 Influenza Vac, Quadrivalent, Slit Virus, Im [id number] 79069 Given 03/30/2015 Influenza Vac, Quadrivalent, Slit Virus, Im [id number] 83081 Given 07/21/2014 Tetanus And Diptheria Adult Preservative Free [id number] >7Yrs 06253 Given 07/21/2014 Influenza vac quadrivalent preservative free 3yrs [id number] and up Vital Signs Date Vital Result Comment 01/28/2019 9:37am BP Systolic 100 mmHg BP Diastolic 60 mmHg Heart Rate 104 /min Body Temperature 99.9 F Respiratory Rate 16 /min Height 76 inches 6'4" measured 05/27/18 Weight 157.00 lb BMI (Body Mass Index) 19.1 kg/m2 01/06/2019 6:01pm BP Systolic 124 mmHg BP [...] Summary Report FINAL 1 Comprehensive Profile [address] [facility] (Summary) [place] [address] (605)- - PDF . Laboratory test 05/27/2018 [facility] PDF [id number] SEE IMAGE finding [address] [place] [address] (146)- - Laboratory test 11/22/2017 [facility] Hemoglobin A1c 5.4 % 4.1-5 finding (937)- - (Fma) .7 Comprehensive 11/22/2017 Gonzalez Inge(fma) Sodium 137 mEq/L 134-1 Metabolic Prof 49 [...] >60 ml/min/1.73m^ >=60 Lipid Profile 11/22/2017 Carlos Alcazar([facility]) Cholesterol 181 mg/dL 120- 200 Triglycerides 82 mg/dL 30-200 HDL Cholesterol 76 mg/dL High 30-70 LDL (Calculated) 89 CALC 0-129 VLDL Cholesterol 16 mg/dL 0-50 HDL Risk Factor 2.4 CALC 0.0-4.4 Laboratory test finding 11/22/2017 Carlos Alcazar([facility]) TSH 1.21 mIU/L 0.50-6.00 CBC Electronic Fma 11/22/2017 Carlos Alcazar([facility]) WBC 9.6 x10^3/UL 4.0- 10.0 RBC 4.20 x10^6/UL 3.93-6.00 HGB 13.4 g/dL 12.0-17.0 HCT 40 % 35-50 MCV 94.3 fL 80.0-95.0 MCH 31.9 pg 25.6-32.2 MCHC 33.8 g/dL 32.2-36.0 RDW-CV 13.0 % 11.6-14.4 PLT 293 x10^3/UL 163-400 MPV 9.6 fL 9.4-12.4 Emerita# 7.04 x10^3/UL High 1.56-6.13 Lymph# 1.94 x10^3/UL 1.18-3.74 Winston# 0.47 x10^3/UL 0.24-0.82 Eos # 0.1 x10^3/UL 0.0-0.5 Baso # 0.06 x10^3/UL 0.01-0.08 Emerita% 73.3 % High 34.0-70.0 Lymph % 20.2 % 20.0-52.0 Winston% 4.9 % Low 5.0-12.0 Eos% 0.9 % 0.7-7.0 Baso% 0.6 % 0.1-1.2 Laboratory test 01/16/2017 [facility] Hemoglobin A1c 5.2 % 4.1-5.7 finding (607)- - (Fma) Complete Blood 01/16/2017 [facility] Inge(a) WBC 4.8 3.6-9.6 Count x10^3/UL RBC 3.83 x10^6/UL Low 3.90-5.70 3 HGB 12.5 g/dL 12.1-17.2 HCT 36 % 36-50 MCV 94.0 fL 82.2-97.4 MCH 32.6 pg 27.6-33.3 MCHC 34.5 g/dL 33.0-35.5 RDW 15.1 % High 11.6-13.7 PLT 371 x10^3/UL 150-400 MPV 6.5 fL Low 7.4-10.4 Gran # 2.6 x10^3/UL 1.5-7.2 Lymph# 1.9 x10^3/UL 0.7-4.9 Winston# 0.3 x10^3/UL 0.1-0.9 Gran % 53.6 % 42.2-75.2 Lymph % 40.0 % 20.5-51.1 Winston% 6.4 % 1.7-9.3 Comprehensive Metabolic 01/16/2017 [facility] Inge(a) Sodium 139 mEq/L 134-149 Prof Potassium 4.8 [...] >=60 GFR >60 ml/min/1.73m^ >=60 Lipid Profile 01/16/2017 [facility] Inge(fma) Cholesterol 200 mg/dL 120- 200 Triglycerides 82 mg/dL 30-200 HDL Cholesterol 95 mg/dL High 30-70 5 LDL (Calculated) 89 CALC 0-129 VLDL Cholesterol 16 mg/dL 0-50 HDL Risk Factor 2.1 CALC 0.0-4.4 Laboratory test 01/16/2017 Carlos Alcazar(fma) TSH 2.05 mIU/L 0.50-6.00 finding Laboratory test 12/29/2016 [facility] Lactic Acid 1.0 mmol/L N 0.5-2.0 6 finding Urinalysis Profile 12/29/2016 [facility] Urine Color Yellow N Urine Appearance Cloudy N Urine Specific [place] 1.017 N 1.010-1.030 Urine pH 5.0 N [...] Present Abnormal Absent CBC Auto Diff 12/29/2016 [facility] White Blood Count 20.1 10^3/uL High 3.5- [...] 10/31/2016 [facility] Summary FINAL 11 Profile [address] [place] [address] (169)- - PDF . Laboratory test 10/31/2016 [facility] PDF [id number] SEE IMAGE finding [address] [place] [address] (052)- - Toxassure(R) 10/17/2016 [facility] Report Summary FINAL 12 Select 13 (MW) [address] [place] [address] (017)- - PDF . Laboratory test 10/17/2016 [facility] PDF [id number] SEE IMAGE finding [address] [place] [address] (851)- - Comprehensive 10/16/2016 Carlos Alcazar(a) Sodium 141 mEq/L 134-1 Metabolic Prof 49 [...] >60 ml/min/1.73m^ >=60 Lipid Profile 10/16/2016 Carlos Alcazar(a) Cholesterol 165 mg/dL 120- 200 Triglycerides 52 mg/dL 30-200 HDL Cholesterol 78 mg/dL High 30-70 14 LDL (Calculated) 77 CALC 0-129 VLDL Cholesterol 10 mg/dL 0-50 HDL Risk Factor 2.1 CALC 0.0-4.4 Complete Blood Count 10/16/2016 Carlos Alcazar(fma) WBC 5.5 x10^3/UL 3.6 -9.6 RBC 4.37 x10^6/UL 3.90-5.70 HGB 14.2 g/dL 12.1-17.2 HCT 42 % 36-50 MCV 97.0 fL 82.2-97.4 MCH 32.5 pg 27.6-33.3 MCHC 33.6 g/dL 33.0-35.5 RDW 14.0 % High 11.6-13.7 PLT 309 x10^3/UL 150-400 MPV 7.0 fL Low 7.4-10.4 Gran # 2.7 x10^3/UL 1.5-7.2 Lymph# 2.5 x10^3/UL 0.7-4.9 Winston# 0.3 x10^3/UL 0.1-0.9 Gran % 47.7 % 42.2-75.2 Lymph % 46.4 % 20.5-51.1 Winston% 5.9 % 1.7-9.3 Laboratory test 10/16/2016 Carlos Alcazar(fma) TSH 2.56 mIU/L 0.50-6.00 finding Laboratory test 10/16/2016 [facility] Hemoglobin A1c 5.3 % % 4.1- 5.7 finding (607)- - (Fma) Toxassure(R) 06/27/2016 [facility] Report Summary FINAL 15 Select 13 (MW) [address] [place] [address] (606)- - PDF . Laboratory test 06/27/2016 [facility] PDF [id number] SEE IMAGE finding [address] [place] [address] (609)- - Laboratory test 09/29/2015 [facility] PDF [id number] SEE IMAGE 16 finding [address] [place] [address] (602)- - Toxassure 09/29/2015 [facility] Summary FINAL 17 Comprehensive [facility] [place] [address] (605)- - PDF . Lipid Profile 06/29/2015 Carlos Alcazar(fma) Cholesterol 205 mg/dL High 120-200 Triglycerides 85 mg/dL 30-200 HDL Cholesterol 79 mg/dL High 30-70 18 LDL (Calculated) 109 CALC 0-129 VLDL Cholesterol 17 mg/dL 0-50 HDL Risk Factor 2.6 CALC 0.0-4.4 Laboratory test 06/29/2015 [facility] Hemoglobin A1c 5.3 % 4.1-5.7 finding (607)- - (Fma/CMC,CX) Toxassure(R) 06/29/2015 [facility] Report Summary FINAL 20 Select 13 (MW) [address] [place] [address] (607)- - PDF . Laboratory test 06/29/2015 [facility] PDF [id number] SEE IMAGE finding [address] [place] [address] (607)- - Complete Blood 06/29/2015 Carlos Inge(fma) WBC 8.0 3.6-9. Count x10^3/UL 6 RBC 4.90 x10^6/UL 3.90-5.70 HGB 16.1 g/dL 12.1-17.2 HCT 48 % 36-50 MCV 97.0 fL 82.2-97.4 MCH 32.8 pg 27.6-33.3 MCHC 33.7 g/dL 33.0-35.5 RDW 13.2 % 11.6-13.7 PLT 416 x10^3/UL High 150-400 21 MPV 6.9 fL Low 7.4-10.4 Gran # 4.4 x10^3/UL 1.5-7.2 Lymph# 3.3 x10^3/UL 0.7-4.9 Winston# 0.3 x10^3/UL 0.1-0.9 Gran % 53.2 % 42.2-75.2 Lymph % 42.4 % 20.5-51.1 Winston% 4.4 % 1.7-9.3 Comprehensive Metabolic 06/29/2015 Carlos Inge(fma) Sodium 136 mEq/L 134-149 Prof Potassium 4.6 [...] >=60 GFR >60 ml/min/1.73m^ >=60 CBC Electronic ([facility]) 07/21/2014 [facility] WBC 6.6 3.6-9.6 (607)- - RBC 4.57 3.90-5.70 Hemoglobin (Fma/CMC/CTX) 14.9 g/dL 12.1 - 17.2 Hematocrit (Fma/CMC/CTX) 44.3 % 36.1 - 50.3 Platelets 273 10^3/ul 150-400 Lymph% 35.9 % 17.0-48.0 Mixed% 4.8 Neutrophils % 59.3 Mean Corpuscular Vol 97 82.2-97.4 Mean Corpuscular Hemoglobin 32.7 27.6-33.3 Mean Corpuscular Hemo Concen 33.7 32.0-36.0 RDW 12.9 11.6-13.7 Mean Platelet Volume 6.2 5.5-11.0 Comprehensive Metabolic 07/21/2014 Gonzalez Inge([facility]) Sodium 138 mEq/L 134-149 Prof Potassium 4.5 [...] 0.3 mg/dL 0.2-1.3 Lipid Profile 07/21/2014 Carlos Alcazar(fma) Cholesterol 177 mg/dL 120- 200 Triglycerides 83 [...] For clinical consultation, please call . 18 RESULTS VERIFIED BY REPEAT ANALYSIS 19 1 urine temp cup 20 TOXASSURE SELECT 13 (MW) Test Result Flag [...] (Cymbalta) For clinical consultation, please call . 21 RESULTS VERIFIED BY REPEAT ANALYSIS 22 RESULTS VERIFIED BY REPEAT ANALYSIS 23 NON-FASTING Procedures Date Code Description Status 01/29/2018 [id number] Colonoscopy Completed Encounters Type Date Location Provider Dx Diagnosis Office Visit 01/06/2019 Main Office Alanna Pan M.D. K02.9 Dental caries , 6:00p unspecified G82.22 Paraplegia, incomplete M24.542 Contracture, left hand M79.2 Neuralgia and neuritis, unspecified G89.4 Chronic pain syndrome Office Visit 06/13/2018 9:30a Main Office Alanna Pan M79.2 Neuralgia and MAbbeyDAbbey neuritis, unspecified M24.542 Contracture, left hand G82.22 [...] Office Shanelle Stokes B02.9 Zoster without Colton, DREDGE HAND complications G89.4 Chronic pain syndrome M79.2 Neuralgia [...] 9:00a [facility] Lindsey Z23 Encounter for Heriberto EkaterinaShana immunization G89.4 Chronic pain syndrome M54.5 Low back pain M25.552 Pain in left hip Office Visit 12/22/2015 10:00a Main Office MARYCRUZ Saxena G89.4 Chronic pain syndrome F41.9 Anxiety disorder, unspecified Office Visit 09/28/2015 1:00p Main Office Alanna Pan M.D. G89.4 Chronic pain syndrome M54.5 Low back pain F41.9 Anxiety disorder, unspecified M25.552 Pain in left hip Z79.891 longterm (current) use of opiate analgesic Office Visit [...] Office Visit 07/21/2014 1:00p Main Office Alanna Pan, V70.0 Examination General M.D. Medical Routine AT [facility] 338.4 Chronic Pain Syndrome 724.2 Lumbago 300.00 Anxiety State Unspec 780.52 Insomnia Unspecified V04.81 Need For Prophylactic Vaccination & Inoculation/Influenza V06.5 Tetanus Diphtheria (DT) Plan of Treatment Future Appointment(s):01/31/2019 2:30 pm - Mary Adams NP at [facility] Axxisc0905/29/2019 9:00 am - Alanna Pan M.D. at Main Jthzis5101/28/2019 - Mary Adams, NATALEE09.90xA Unspecified injury of head, initial encounterComments:Hold and Call CT - set up with neurologist obtain records from [facility] up:Sunday - ED precautions [id number] Concussion with loss of consciousness of unspecified duration, subsequent encounterComments:patient still confused, will set up neuro consult to review imaging, compare to [facility]'s robiwxfiC92.22 Paraplegia, dleezepxtwN77.542 Contracture, left handS00.11xD Contusion of right eyelid and periocular area, subsequent encounterAllComments:Medication Management Patient Understands medications he 's taking? Yes No Are there Barriers to Adherence? Yes No Has the patient been asked about herbal supplements and therapies, andOTC meds? Yes No Care Plan1. Patient has been queried about patient's goals/preferences and functional/lifestyle goals at relevant visits. If relevant, describe: na2. Treatment goals as explained to the patient: above3. Are there barriers to meeting treatment goals? Yes No If Yes, please describe: comorbid conditions, declines to go to ED 4. Self-Management goals as described to the patient: Yes NoAs always, we strongly encourage a healthy diet and making physical activity a part of your every day life. If you have questions about how or where to start, please contact the office.
[2019-02-03 18:06] LABS: Acetaminophen < 15 mcg/mL; Alcohol < 10 mg/dL (<10)
[2019-02-03 18:25] LABS: TSH (Thyroid Stimulating Horm) 0.83 mcIU/mL (0.34-5.60)
[2019-02-03] MEDS ORDERED: LORazepam INJ* 2 MG/ML 1 ML VIAL IV PUSH ONE ×2 (19:12→22:38)
[2019-02-03] MEDS ORDERED: Lorazepam PYXIS KEY PRN ×2 (19:12→22:38)
[2019-02-03] MEDS ORDERED: Lorazepam PYXIS KEY ONE ×3 (19:25→22:33)
--- NOTE | 2019-02-03 20:21 | ED ---
Progress - Progress Note Progress Note: This pt is a signout from Dr. Ball to Dr. Hooker at shift change 1900 02/03/19 pending sobriety due to ingestion of drugs. Re-Evaluation - Re-Evaluation First Eval Re-Evaluation Time: 00:35 Change: Unchanged Comment: Pt was re-evaluated to see if he could be discharged. Pt was unable to state his own name on the re-evaluation. Second Eval Re-Evaluation Time: 00:45 Change: Worse Comment: Patient is more agitated with pupils dilated. Ativan to be administered. Previous workup showed patient was positive for cannibinoids only. Pt still hostile and aggitated. Course/Dx - Course Course Of Treatment: This pt is a signout from Dr. Ball to Dr. Hooker at shift change 1900 02/03/19 pending sobriety due to ingestion of drugs. The pt woke up at 0035 but was still hostile and agitated despite only having cannabinoids in his system. Pt will be admitted to [facility] by Dr. Coughlin, Hospitalist with a Dx of change in mental status. - Diagnoses Provider Diagnoses: Change in mental status - Provider Notifications Discussed Care Of Patient With: Terri Coughlin Time Discussed With Above Provider: 00:53 Instructed by Provider To: Admit As Inpatient Discharge - Sign-Out/Discharge Documenting (check all that apply): Patient Departure - admitted, Receiving Sign -Out Receiving patient FROM: Reji Ball Patient Received Moderate/Deep Sedation with Procedure: No - Discharge Plan Condition: Stable Disposition: ADMITTED TO [facility] Referrals: Alanna Pan MD [Primary Care Provider] - - Attestation Statements Document Initiated by Scribe: Yes Documenting Scribe: Issac Hannah Provider For Whom Scribe is Documenting (Include Credential): Cassie Hooker MD Scribe Attestation: Issac Lane, scribed for Cassie Hooker MD on 02/04/19 at 0052. Status of Scribe Document: Ready
[2019-02-03] MEDS ORDERED: Haloperidol INJ IV/IM* 5 MG/ML AMP ONE (22:17)
[2019-02-03] MEDS ORDERED: Haloperidol INJ IV/IM* 5 MG/ML AMP IM ONE (22:20)
[2019-02-03] MEDS ORDERED: LORazepam INJ* 2 MG/ML 1 ML VIAL ONE (22:34)
[2019-02-03 23:14] LABS: Urine Benzodiazepine Screen None Detected (None Detect); Urine Opiates Screen None Detected (None Detect)
[2019-02-04] MEDS ORDERED: Lorazepam PYXIS KEY ONE ×2 (00:44→01:23)
[2019-02-04] MEDS ORDERED: Lorazepam PYXIS KEY PRN ×2 (00:50→01:23)
[2019-02-04] MEDS ORDERED: LORazepam INJ* 2 MG/ML 1 ML VIAL IV PUSH ONE ×2 (00:50→01:23)
[2019-02-04] MEDS ORDERED: Haloperidol INJ IV/IM* 5 MG/ML AMP IM ONE (00:51)
[2019-02-04] MEDS ORDERED: Diazepam SYRINGE* 5 MG/ML 2 ML SYRINGE (10 MG total) IV ONE (01:24)
[2019-02-04] MEDS ORDERED: Diazepam INJ (NF) 5 MG/ML 10 ML VIAL (50 MG TOTAL) IV ONE (01:24)
[2019-02-04] MEDS ORDERED: LORazepam INJ* 2 MG/ML 1 ML VIAL ONE (01:24)
[2019-02-04] MEDS ORDERED: NS 0.9% 1000 ML** 1,000 ML IV SCH (02:45)
[2019-02-04] MEDS ORDERED: Thiamine IV* 100 MG, Folic Acid IV* 1 MG, Multiple Vitamin IV ADULT* 10 ML in NS 0.9% 1... IV ONE (02:48)
[2019-02-04] MEDS ORDERED: Thiamine IV* 500 MG in NS 0.9% 250 ML* 250 ML IV ONE (03:04)
[2019-02-04] MEDS ORDERED: Iohexol 350* (CONTRAST) 500 ML MDV IV ONE (03:09)
[2019-02-04] MEDS ORDERED: cefTRIAXone(*) 2 GM in NS 0.9% 100 ML* 100 ML IVPB SCH (04:00)
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
[2019-02-04] MEDS ORDERED: ACYCLOVIR IVPB SCH ×2 (05:00)
[2019-02-04] MEDS ORDERED: NS 0.9% IVPB SCH ×2 (05:00)
[2019-02-04 05:57] LABS: Albumin 3.7 g/dL (3.2-5.2); Albumin/Globulin Ratio 1.9 (1-3); BUN/Creatinine Ratio 27.3 (8-20); Calcium 8.4 mg/dL (8.6-10.3); Potassium 3.7 mmol/L (3.5-5.0); Total Bilirubin 0.3 mg/dL (0.2-1.0); Total Protein 5.7 g/dL (6.4-8.9)
[2019-02-04] MEDS ORDERED: Heparin VIAL(*) 5000 UNITS/ML VIAL (FIVE THOUSAND) SUBCUT SCH (06:00)
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
[2019-02-04 06:32] LABS: HIV 4th Generation Negative (Negative)
[2019-02-04] MEDS ORDERED: Diazepam TAB(*) 5 MG PO ONE (09:54)
[2019-02-04] MEDS ORDERED: Cyanocobalamin INJ * 1,000 MCG/ML VIAL 1 ML VIAL IM ONE (11:54)
[2019-02-04] MEDS ORDERED: Potassium Chloride* LIQUID 20 MEQ/15 ML UDC PO ONE (12:05)
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
[2019-02-04] MEDS: Famotidine TAB* 20 MG PO SCH (13:02)
[2019-02-04] MEDS: Folic Acid TAB* 1 MG PO SCH (13:02)
[2019-02-04] MEDS: NS 0.45% 1000 ML BAG* 1,000 ML IV SCH (13:13)
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
[2019-02-04] MEDS: Thiamine IV* 100 MG in NS 0.9% 50 ML* 50 ML IV SCH (18:48)
[2019-02-05] MEDS: Folic Acid TAB* 1 MG PO SCH (07:46)
[2019-02-05] MEDS: Famotidine TAB* 20 MG PO SCH (07:46)
[2019-02-05] MEDS ORDERED: Cyanocobalamin INJ * 1,000 MCG/ML VIAL 1 ML VIAL IM ONE (09:19)
--- NOTE | 2019-02-05 09:42 | EEG ---
ELECTROENCEPHALOGRAM REPORT: DATE OF STUDY: 02/04/19 LOCATION: He is an inpatient in ICU bed 6. REFERRING PROVIDER: Dr. Coughlin. CLINICAL PROBLEM: History of prior head trauma, the patient was found unresponsive and brought into the emergency room. Rule out seizure disorder. MEDICATIONS: Include: 1. Lorazepam. 2. Subcutaneous heparin. 3. Acyclovir. 4. Rocephin. REPORT: This 19-channel EEG is remarkable for background rhythms consisting of a diffuse muscle jorgito fact. There is a discernable theta rhythm at about 7 cycles per second seen parasagittally. Quieter portions of the tracing revealed a theta rhythm occipitally also at about 7 cycles per second. The patient is awake but confused. Activation procedures are not attempted. There are no clinical event s. There is no evidence of sleep. INTERPRETATION: Limited EEG because of excessive muscle and movement artifact. Those portions of the tracing that are readable indicate a generally slow background consistent with mild diffuse cerebral dysfunction. Repeat study is recommended with sedation if needed. [id number]/[facility] #: [id number]
[2019-02-05 12:46] LABS: Hematocrit 34 % (42-52); Hemoglobin 11.4 g/dL (14.0-18.0); Mean Corpuscular HGB Conc 34 g/dL (31-36); Mean Corpuscular Hemoglobin 33 pg (27-31); Mean Corpuscular Volume 97 fL (80-94); Mean Platelet Volume 7.3 fL (7.4-10.4); Platelet Count 238 10^3/uL (150-450); Red Blood Count 3.49 10^6 /uL (4.18-5.48); Red Cell Distribution Width 14 % (10-15)
[2019-02-05 13:16] LABS: Anion Gap 7 mmol/L (2-11); BUN/Creatinine Ratio 18.3 (8-20); Blood Urea Nitrogen 11 mg/dL (6-24); CO2 Carbon Dioxide 24 mmol/L (22-32); Calcium 9.1 mg/dL (8.6-10.3); Chloride 109 mmol/L (101-111); EGFR African American 171.9 (>60); Glucose 112 mg/dL (70-100); Magnesium 2.1 mg/dL (1.9-2.7); Phosphorus 3.2 mg/dL (2.5-5.0); Potassium 3.6 mmol/L (3.5-5.0); Sodium 140 mmol/L (135-145)
[2019-02-05 13:31] LABS: Folate > 20.00 ng/mL (>3.99)
[2019-02-05] MEDS: Thiamine IV* 100 MG in NS 0.9% 50 ML* 50 ML IV SCH (14:35)
[2019-02-05] MEDS: NS 0.45% 1000 ML BAG* 1,000 ML IV SCH (14:35)
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
[2019-02-06] MEDS: NS 0.45% 1000 ML BAG* 1,000 ML IV SCH ×2 (02:06→10:27)
[2019-02-06 06:32] LABS: ABS Eosinophils 0.1 10^3/ul (0-0.6); ABS Lymphocytes 1.4 10^3/ul (1.0-4.8); ABS Monocytes 0.5 10^3/ul (0-0.8); ABS Neutrophils 3.7 10^3/ul (1.5-7.7); Hematocrit 34 % (42-52); Hemoglobin 11.6 g/dL (14.0-18.0); Lymphocyte % 24.7 %; Mean Corpuscular HGB Conc 34 g/dL (31-36); Mean Corpuscular Hemoglobin 33 pg (27-31); Mean Corpuscular Volume 96 fL (80-94); Mean Platelet Volume 7.4 fL (7.4-10.4); Nucleated Red Blood Cells % 0.1; Platelet Count 224 10^3/uL (150-450); Red Blood Count 3.58 10^6 /uL (4.18-5.48); Red Cell Distribution Width 13 % (10-15); White Blood Count 5.7 10^3/uL (3.5-10.8)
[2019-02-06 06:59] LABS: BUN/Creatinine Ratio 17.7 (8-20); EGFR African American 165.5 (>60); EGFR Non-African American 136.8 (>60); Phosphorus 3.5 mg/dL (2.5-5.0); Potassium 3.7 mmol/L (3.5-5.0)
[2019-02-06] MEDS: Famotidine TAB* 20 MG PO SCH (10:22)
[2019-02-06] MEDS: Folic Acid TAB* 1 MG PO SCH (10:22)
[2019-02-06] MEDS ORDERED: Cyanocobalamin INJ * 1,000 MCG/ML VIAL 1 ML VIAL IM ONE (11:11)
[2019-02-06 12:01] VITALS: BP 149/63
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
--- NOTE | 2019-02-06 14:03 | EEG ---
ELECTROENCEPHALOGRAM REPORT: DATE OF STUDY: 02/05/19 LOCATION: He is an inpatient. REFERRING PROVIDER: Dr. Jacques. CLINICAL PROBLEM: The patient was found unresponsive. There is a history of multiple prior head injuries. MEDICATIONS: Include: 1. Thiamine. 2. Folate. 3. Pepcid. REPORT: This 19-channel EEG is remarkable for background rhythms consisting of a well-formed alpha rhythm in the posterior derivations 8-1/2 to 9 cycles per second which is symmetrical. Low voltage bifrontal beta rhythms are noted and are symmetric. Activation procedures are not attempted. There are no clinical events. There are occasional poorly formed short sharp spikes in the left or occasionally in the right parasagittal region. There are no well-formed epileptiform discharges. The patient did not sleep. INTERPRETATION: Essentially normal awake EEG. There are some small sharp spikes noted in the parasagittal regions bilaterally without clear epileptiform morphology. [id number]/[facility] #: [id number] [facility] CENTERClaudy
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
[2019-02-06 21:39] LABS: Anaplasma phagocytophilum Negative (Negative); B. miyamotoi PCR, B Negative (Negative); Babesia divergens/MO-1 Negative (Negative); Babesia ducani Negative (Negative); Ehrlichia chaffeensis Negative (Negative); Ehrlichia ewingii/canis Negative (Negative); Ehrlichia muris eauclairensis Negative (Negative)
== END 2019-02-06 13:30 | disposition home or self-care (01) | DRG 641 ==
LOC: ED 16:44 → ICU 02-04 02:45 → MED 02-04 15:15
PROVIDERS: ADMIT Internal Medicine; ATTEND Internal Medicine
PROC: 4A10X4Z Monitoring of Central Nervous Electrical Activity, External Approach (ICD-10-PCS; principal; 2019-02-05)
DX: E53.8 Deficiency of other specified B group vitamins (principal); E87.0 Hyperosmolality and hypernatremia; G82.22 Paraplegia, incomplete; M62.82 Rhabdomyolysis; G93.49 Other encephalopathy; G89.29 Other chronic pain; M54.9 Dorsalgia, unspecified; Z98.1 Arthrodesis status; M48.8X2 Other specified spondylopathies, cervical region; K21.9 Gastro-esophageal reflux disease without esophagitis; Z87.891 Personal history of nicotine dependence; R40.2352 Coma scale, best motor response, localizes pain, at arrival to emergency department; R40.2132 Coma scale, eyes open, to sound, at arrival to emergency department; R40.2232 Coma scale, best verbal response, inappropriate words, at arrival to emergency department; V19.9XXS Pedal cyclist (driver) (passenger) injured in unspecified traffic accident, sequela; M24.542 Contracture, left hand
CPT/HCPCS: 36415; 70450; 70496; 70498; 70551; 71045; 72125; 80048; 80053; 80307; 80320; 80329; 82140; 82550; 82607; 82746; 82803; 83735; 83921; 84100; 84443; 85025; 85027; 85652; 86618; 86780; 87389; 87641; 87798; 95816; 99284; A9270-GY; G0480; J0133; J0696; J1630; J1644; J2060; J3360; J3411; J3420; Q9967

== ENCOUNTER 2019-03-20 16:43 | Inpatient (IN) | payer MEDICARE, MEDICAID ==
[2019-03-20] MEDS ORDERED: Etomidate* 2 MG/ML 20 ML VIAL (40 MG) ONE (16:47)
[2019-03-20] MEDS ORDERED: Succinylcholine* 20 MG/ML 10 ML VIAL ONE (16:47)
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
[2019-03-20] MEDS ORDERED: Propofol* 100 ML IV SCH ×2 (17:00→22:00)
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
[2019-03-20 17:35] LABS: ABS Basophils 0.1 10^3/ul (0-0.2); ABS Eosinophils 0.1 10^3/ul (0-0.6); ABS Lymphocytes 2.1 10^3/ul (1.0-4.8); ABS Monocytes 0.6 10^3/ul (0-0.8); ABS Neutrophils 4.1 10^3/ul (1.5-7.7); Eosinophil % 1.2 %; Hematocrit 41 % (42-52); Hemoglobin 13.5 g/dL (14.0-18.0); Lymphocyte % 29.8 %; Mean Corpuscular HGB Conc 33 g/dL (31-36); Mean Corpuscular Hemoglobin 32 pg (27-31); Mean Corpuscular Volume 98 fL (80-94); Mean Platelet Volume 7.4 fL (7.4-10.4); Platelet Count 241 10^3/uL (150-450); Red Blood Count 4.18 10^6 /uL (4.18-5.48); Red Cell Distribution Width 14 % (10-15); White Blood Count 6.9 10^3/uL (3.5-10.8)
[2019-03-20] MEDS ORDERED: levETIRAcetam 1000MG IVPREMIX* 1,000 MG/100 ML BAG IVPB ONE (17:47)
[2019-03-20 17:57] LABS: ALT 24 U/L (7-52); AST 31 U/L (13-39); Albumin 4.4 g/dL (3.2-5.2); Alkaline Phosphatase 46 U/L (34-104); Anion Gap 5 mmol/L (2-11); BUN/Creatinine Ratio 21.1 (8-20); Blood Urea Nitrogen 16 mg/dL (6-24); CO2 Carbon Dioxide 27 mmol/L (22-32); Calcium 8.8 mg/dL (8.6-10.3); Chloride 111 mmol/L (101-111); EGFR African American 130.8 (>60); EGFR Non-African American 108.1 (>60); Globulin 2.2 g/dL (2-4); Glucose 125 mg/dL (70-100); Potassium 4.4 mmol/L (3.5-5.0); Sodium 143 mmol/L (135-145); Total Protein 6.6 g/dL (6.4-8.9)
[2019-03-20] MEDS ORDERED: NS 0.9% 1000 ML** 1,000 ML IV ONE (18:00)
[2019-03-20 18:07] LABS: Alcohol < 10 mg/dL (<10)
[2019-03-20] MEDS ORDERED: Naloxone* 0.4 MG/ML 10 ML VIAL ONE (18:08)
[2019-03-20] MEDS ORDERED: Naloxone* 0.4 MG/ML 1 ML VIAL IV PUSH ONE (18:10)
[2019-03-20 18:13] LABS: Urine Benzodiazepine Screen None Detected (None Detect); Urine Opiates Screen None Detected (None Detect)
[2019-03-20] MEDS ORDERED: Charcoal ACTIVATED* 25 GM/120 ML BTL NG TUBE ONE (18:40)
[2019-03-20] MEDS ORDERED: NS 0.9% 1000 ML** 1,000 ML IV SCH (19:15)
[2019-03-20 19:19] LABS: Creatine Kinase 978 U/L (10-223)
[2019-03-20 19:20] LABS: Acetaminophen < 15 mcg/mL; Salicylate < 2.50 mg/dL (<30)
[2019-03-20] MEDS ORDERED: Midazolam IV for DRIP* 100 MG in NS 0.9% 100 ML* 80 ML IV SCH (20:00)
[2019-03-20] MEDS ORDERED: fentaNYL INFUSION 50 MCG/ML* 2,500 MCG/50 ML BAG IV SCH (20:00)
[2019-03-20] MEDS: levETIRAcetam 500 MG IVPREMIX* 500 MG/100 ML BAG IV SCH (20:23)
[2019-03-20] MEDS: Pantoprazole IV* 40 MG IV SCH (20:23)
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
[2019-03-20 21:23] LABS: TSH (Thyroid Stimulating Horm) 0.47 mcIU/mL (0.34-5.60)
[2019-03-20] MEDS: Heparin VIAL(*) 5000 UNITS/ML VIAL (FIVE THOUSAND) SUBCUT SCH (21:26)
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
[2019-03-20] MEDS: Chlorhexidine MOUTHWASH 0.12%* 15 ML UDC TOPICAL SCH (22:17)
[2019-03-20] MEDS: Propofol* 100 ML ONE ×2 (22:17→22:18)
[2019-03-20 22:44] LABS: Urine Appearance Clear; Urine Bacteria Absent (Absent); Urine Bilirubin Negative (Negative); Urine Blood 1+ (Negative); Urine Color Yellow; Urine Glucose Negative (Negative); Urine Ketones Negative (Negative); Urine Nitrite Negative (Negative); Urine Protein Negative (Negative); Urine Red Blood Cell Absent (Absent); Urine Specific Gravity 1.024 (1.010-1.030); Urine Urobilinogen Negative (Negative); Urine White Blood Cell Absent (Absent)
[2019-03-20] MEDS ORDERED: Midazolam* 1 MG/ML 2 ML VIAL (2 MG) ONE (23:49)
[2019-03-21] MEDS ORDERED: Midazolam* 1 MG/ML 2 ML VIAL (2 MG) IV SLOW PU ONE ×2 (00:06)
[2019-03-21] MEDS ORDERED: Midazolam* 1 MG/ML 2 ML VIAL (2 MG) ONE (00:09)
[2019-03-21] MEDS: Chlorhexidine MOUTHWASH 0.12%* 15 ML UDC TOPICAL SCH ×6 (00:10→21:16)
[2019-03-21] MEDS ORDERED: fentaNYL* 50 MCG/ML 2 ML VIAL (100 MCG VIAL) ONE (00:20)
[2019-03-21] MEDS ORDERED: Dexmedetomidine* 1,000 MCG in NS 0.9% 250 ML* 240 ML IV SCH (01:00)
[2019-03-21] MEDS: Propofol* 100 ML IV SCH ×5 (01:19→22:52)
[2019-03-21] MEDS ORDERED: fentaNYL* 50 MCG/ML 2 ML VIAL (100 MCG VIAL) IV ONE (02:00)
[2019-03-21] MEDS ORDERED: Acetaminophen SUPP* 325 MG SUPP PR ONE (02:00)
[2019-03-21] MEDS ORDERED: Acetaminophen SUPP* 650 MG SUPP PR ONE (02:00)
[2019-03-21] MEDS ORDERED: NS 0.9% 1000 ML** 2,000 ML IV ONE (02:04)
[2019-03-21] MEDS ORDERED: Vancomycin(*) 1,250 MG in NS 0.9% 250 ML* 250 ML IVPB ONE (02:30)
[2019-03-21] MEDS: Dexmedetomidine* 1,000 MCG in NS 0.9% 250 ML* 240 ML IV SCH ×2 (02:48→17:41)
[2019-03-21] MEDS ORDERED: Norepinephrine 16MCG/ML IVPRE* 4,000 MCG/250 ML BAG IV SCH (03:00)
[2019-03-21] MEDS ORDERED: Vancomycin per Pharmacy* NOTE FOLLOW UP SCH (03:00)
[2019-03-21] MEDS: Cefepime 2 GM in Dextrose(*) 2 GM/50 ML BAG IV SCH ×2 (04:58→18:12)
[2019-03-21 05:04] LABS: ABS Basophils 0.1 10^3/ul (0-0.2); ABS Lymphocytes 0.7 10^3/ul (1.0-4.8); ABS Monocytes 0.6 10^3/ul (0-0.8); Eosinophil % 0.2 %; Hematocrit 36 % (42-52); Hemoglobin 11.9 g/dL (14.0-18.0); Lymphocyte % 6.7 %; Mean Corpuscular HGB Conc 33 g/dL (31-36); Mean Corpuscular Hemoglobin 32 pg (27-31); Mean Corpuscular Volume 98 fL (80-94); Mean Platelet Volume 7.4 fL (7.4-10.4); Platelet Count 183 10^3/uL (150-450); Red Blood Count 3.69 10^6 /uL (4.18-5.48); Red Cell Distribution Width 14 % (10-15); White Blood Count 10.3 10^3/uL (3.5-10.8)
[2019-03-21 05:35] LABS: Albumin 3.4 g/dL (3.2-5.2); Albumin/Globulin Ratio 1.9 (1-3); BUN/Creatinine Ratio 22.1 (8-20); Calcium 7.6 mg/dL (8.6-10.3); EGFR African American 148.8 (>60); EGFR Non-African American 122.9 (>60); Globulin 1.8 g/dL (2-4); Indirect Bilirubin 0.2 mg/dL (0.3-1.0); Magnesium 1.7 mg/dL (1.9-2.7); Potassium 3.6 mmol/L (3.5-5.0); Total Bilirubin 0.3 mg/dL (0.2-1.0); Total Protein 5.2 g/dL (6.4-8.9)
[2019-03-21 05:37] LABS: Troponin I 0.02 ng/mL (<0.04)
[2019-03-21] MEDS: Heparin VIAL(*) 5000 UNITS/ML VIAL (FIVE THOUSAND) SUBCUT SCH ×3 (05:59→21:16)
[2019-03-21] MEDS: levETIRAcetam 500 MG IVPREMIX* 500 MG/100 ML BAG IV SCH (08:36)
[2019-03-21] MEDS ORDERED: Lorazepam PYXIS KEY ONE ×2 (08:50→08:55)
[2019-03-21] MEDS ORDERED: LORazepam INJ* 2 MG/ML 1 ML VIAL ONE ×5 (08:50→22:48)
[2019-03-21] MEDS: LORazepam INJ* 2 MG/ML 1 ML VIAL IV PUSH PRN ×4 (08:54→22:30)
[2019-03-21] MEDS ORDERED: levETIRAcetam 500 MG IVPREMIX* 500 MG/100 ML BAG IV ONE (09:00)
[2019-03-21] MEDS ORDERED: Lorazepam PYXIS KEY PRN ×2 (09:06→11:53)
[2019-03-21] MEDS ORDERED: Valproic Acid IV(*) 1,000 MG in NS 0.9% 100 ML* 100 ML IVPB ONE (10:00)
[2019-03-21] MEDS ORDERED: Potassium Phosphate IV* 30 MMOLE in NS 0.9% 250 ML* 250 ML IVPB ONE (10:15)
[2019-03-21] MEDS: Pantoprazole IV* 40 MG IV SCH (10:29)
[2019-03-21] MEDS: Vancomycin(*) 1,000 MG in NS 0.9% 250 ML* 250 ML IVPB SCH ×2 (11:13→19:32)
[2019-03-21 11:40] LABS: EGFR African American 151.3 (>60); EGFR Non-African American 125.1 (>60)
[2019-03-21] MEDS ORDERED: NS 0.9% 1000 ML** 1,000 ML IV SCH (11:53)
[2019-03-21] MEDS ORDERED: LORazepam INJ* 2 MG/ML 1 ML VIAL IV PUSH PRN ×2 (11:53→13:25)
[2019-03-21 11:56] LABS: Vancomycin Trough 6.2 mcg/mL
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
[2019-03-21] MEDS ORDERED: Magnesium Sulfate 2 GM IV* 2 GM/50 ML BAG IVPB ONE (13:00)
[2019-03-21] MEDS: Lactated Ringers 1000 ML Bag* 1,000 ML IV SCH (13:43)
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
[2019-03-21] MEDS ORDERED: Midazolam IV for DRIP* 100 MG in NS 0.9% 100 ML* 80 ML IV SCH (17:00)
--- NOTE | 2019-03-21 17:24 | OP ---
Operative Report - Blank - Operative Report Date of Operation: 03/21/19 Note: Central Line Procedure Note Indication: venous access Diagnosis: hypotension, acute respiratory failure with hypoxia, seizures Performed by: Tommie Purcell MD Consent: Emergent [place] Protocol: Time-out was performed and the correct patient and site were verified - Prior labs/history was reviewed prior to procedure - Full sterile precautions with chlorhexidine/full drapes/gowns/gloves utilized - Left Internal Jugular vein visualized with ultrasound - Vessel accessed under ultrasound guidance with return of nonpulsatile blood. A guidewire was passed into vessel and confirmed in vessel with ultrasound. 1 attempt was made to access vessel. Vessel was dilated and cathetor was passed over wire into vessel. All ports demonstrated good blood return and flushed. Catheter was sutured to site and dressing applied. Adequate hemostasis was achieved EBL <5 cc No immediate complications noted, patient tolerated procedure well. Post Procedure CXR: Pending Tommie Purcell MD Electron Tube Assembler (Electronically Signed)
[2019-03-21] MEDS ORDERED: fentaNYL* 50 MCG/ML 2 ML VIAL (100 MCG VIAL) IV SLOW PU ONE ×2 (17:50)
--- NOTE | 2019-03-21 19:27 | EEG ---
AMENDED REPORT NOW INCLUDES DATE OF STUDY - ESIGNED BEFORE ADJUSTMENT ELECTROENCEPHALOGRAPHY: DATE OF STUDY: 03/21/19 - ROOM #ICU-01 DATE OF DICTATION: 03/21/19 PATIENT OF: Dr. Anne. CLINICAL PROBLEM: This is a 49-year-old man being evaluated for an episode of unresponsiveness. He is on propofol and has received Keppra, vancomycin, Protonix, heparin, Maxipime, Precedex, Levophed, propofol and Ativan. REPORT: Background cerebral activity as this 54-minute tracing begins consists of diffuse irregular theta activity with admixed frequent sharp activity appearing sometimes left hemispheric and occasionally on the right hemispheric and sometimes into the generalized pattern. A brief periods of relative attenuation of low amplitude delta and beta activity that occur every several seconds. The propofol was increased during this tracing, the patient received Keppra as well as Ativan and the tracing becomes discontinuous with bursts of 1 to 2-3 seconds of low amplitude delta theta activity with some generalized sharp waves punctuating, this lasting up to half to 1 second. These slow waves have at times a sharp contour to them. The patient initially at the start of the tracing had began having some generalized jerking of the body with isolated jerks. In association with some of these discharges, the head would jerk as well. This abnormal movements stopped during the course of this tracing. CLINICAL IMPRESSION: This EEG is abnormal consistent with a initial seizure and then this patient being in a postictal period, but still having frequent discharges. [id number]/[facility] #: [id number] THEODORE
[2019-03-21] MEDS ORDERED: NS 0.9% 1000 ML/HR X 1 BAG (TOTAL 1000 ML) IV ONE (19:45)
[2019-03-21 20:28] LABS: ABS Basophils 0.1 10^3/ul (0-0.2); ABS Lymphocytes 1.9 10^3/ul (1.0-4.8); ABS Monocytes 0.6 10^3/ul (0-0.8); ABS Neutrophils 12.4 10^3/ul (1.5-7.7); Eosinophil % 0.3 %; Hematocrit 34 % (42-52); Hemoglobin 11.2 g/dL (14.0-18.0); Lymphocyte % 12.6 %; Mean Corpuscular HGB Conc 33 g/dL (31-36); Mean Corpuscular Hemoglobin 32 pg (27-31); Mean Corpuscular Volume 97 fL (80-94); Mean Platelet Volume 7.3 fL (7.4-10.4); Platelet Count 177 10^3/uL (150-450); Red Cell Distribution Width 14 % (10-15)
[2019-03-21 20:49] LABS: Troponin I 0.02 ng/mL (<0.04)
[2019-03-21 20:50] LABS: ALT 16 U/L (7-52); AST 18 U/L (13-39); Albumin 3.4 g/dL (3.2-5.2); Albumin/Globulin Ratio 1.7 (1-3); Alkaline Phosphatase 44 U/L (34-104); BUN/Creatinine Ratio 20.6 (8-20); Blood Urea Nitrogen 13 mg/dL (6-24); CO2 Carbon Dioxide 24 mmol/L (22-32); Calcium 7.9 mg/dL (8.6-10.3); Creatine Kinase 340 U/L (10-223); EGFR African American 162.5 (>60); EGFR Non-African American 134.3 (>60); Glucose 112 mg/dL (70-100); Potassium 3.9 mmol/L (3.5-5.0); Sodium 144 mmol/L (135-145); Total Protein 5.4 g/dL (6.4-8.9)
[2019-03-21 20:51] LABS: Anion Gap 6 mmol/L (2-11); Chloride 114 mmol/L (101-111)
[2019-03-21] MEDS: Midazolam IV for DRIP* 100 MG in NS 0.9% 100 ML* 80 ML IV SCH (21:13)
[2019-03-21] MEDS: levETIRAcetam 1000MG IVPREMIX* 1,000 MG/100 ML BAG IVPB SCH (21:16)
[2019-03-21] MEDS ORDERED: LORazepam INJ* 2 MG/ML 1 ML VIAL IV PUSH ONE (22:47)
[2019-03-21] MEDS: Valproic Acid IV(*) 500 MG in NS 0.9% 100 ML* 100 ML IVPB SCH (23:47)
[2019-03-22] MEDS: LORazepam INJ* 2 MG/ML 1 ML VIAL IV PUSH PRN ×2 (00:05→10:02)
[2019-03-22] MEDS: Chlorhexidine MOUTHWASH 0.12%* 15 ML UDC TOPICAL SCH ×4 (01:10→14:12)
[2019-03-22] MEDS: Propofol* 100 ML IV SCH ×4 (01:10→13:10)
[2019-03-22] MEDS: Midazolam IV for DRIP* 100 MG in NS 0.9% 100 ML* 80 ML IV SCH ×2 (02:19→12:25)
[2019-03-22] MEDS: Cefepime 2 GM in Dextrose(*) 2 GM/50 ML BAG IV SCH (03:27)
[2019-03-22] MEDS: Vancomycin(*) 1,000 MG in NS 0.9% 250 ML* 250 ML IVPB SCH ×2 (03:49→12:01)
[2019-03-22 03:52] LABS: ABS Basophils 0.1 10^3/ul (0-0.2); ABS Eosinophils 0.1 10^3/ul (0-0.6); ABS Monocytes 0.6 10^3/ul (0-0.8); ABS Neutrophils 10.5 10^3/ul (1.5-7.7); Eosinophil % 0.5 %; Hematocrit 33 % (42-52); Hemoglobin 10.8 g/dL (14.0-18.0); Lymphocyte % 8.2 %; Mean Corpuscular HGB Conc 33 g/dL (31-36); Mean Corpuscular Hemoglobin 32 pg (27-31); Mean Corpuscular Volume 97 fL (80-94); Mean Platelet Volume 7.3 fL (7.4-10.4); Platelet Count 149 10^3/uL (150-450); Red Blood Count 3.35 10^6 /uL (4.18-5.48); Red Cell Distribution Width 14 % (10-15); White Blood Count 12.2 10^3/uL (3.5-10.8)
[2019-03-22 04:11] LABS: Albumin 3.2 g/dL (3.2-5.2); Albumin/Globulin Ratio 1.7 (1-3); BUN/Creatinine Ratio 20.3 (8-20); EGFR African American 175.2 (>60); EGFR Non-African American 144.8 (>60); Globulin 1.9 g/dL (2-4); Potassium 3.9 mmol/L (3.5-5.0); Total Bilirubin 0.3 mg/dL (0.2-1.0); Total Protein 5.1 g/dL (6.4-8.9)
[2019-03-22] MEDS: Heparin VIAL(*) 5000 UNITS/ML VIAL (FIVE THOUSAND) SUBCUT SCH ×2 (05:45→14:12)
[2019-03-22] MEDS: Dexmedetomidine* 1,000 MCG in NS 0.9% 250 ML* 240 ML IV SCH (05:45)
[2019-03-22] MEDS: Pantoprazole IV* 40 MG IV SCH (08:40)
[2019-03-22] MEDS: levETIRAcetam 1000MG IVPREMIX* 1,000 MG/100 ML BAG IVPB SCH (08:40)
[2019-03-22] MEDS: Lactated Ringers 1000 ML Bag* 1,000 ML IV SCH (09:34)
[2019-03-22] MEDS ORDERED: LORazepam INJ* 2 MG/ML 1 ML VIAL ONE ×3 (10:09→15:23)
[2019-03-22] MEDS ORDERED: Lorazepam PYXIS KEY ONE ×2 (10:26→15:22)
[2019-03-22] MEDS ORDERED: Vancomycin Trough Check NOTE FOLLOW UP ONE (10:30)
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
[2019-03-22] MEDS: KCL 20 MEQ/100 ML IVPREMIX* 20 MEQ/100 ML BAG IV SCH ×2 (11:13→13:36)
[2019-03-22] MEDS ORDERED: Thiamine INJ* 500 MG in NS 0.9% 250 ML* 250 ML IV ONE (11:30)
[2019-03-22] MEDS: Valproic Acid IV(*) 500 MG in NS 0.9% 100 ML* 100 ML IVPB SCH (11:59)
--- NOTE | 2019-03-22 12:04 | PN ---
PROGRESS NOTE: DATE OF VISIT: 03/22/19 PATIENT OF: Dr. Purcell. HISTORY: This is a neurological followup for this 49-year-old man, status post an unresponsive episode on presentation followed by a seizure yesterday, after which he was postictal, intubated, on propofol. He, beginning this morning, had some stiffness in his upper extremities and his EEG wires were off. The stiffness was not in his legs. He got some Ativan, but it did not appear to be most likely stiff seizures, the more likely spasticity related to his chronic brain and cervical trauma. However, we had the supply chain tech come in, replace the wires and indeed the EEG showed diffuse slowing, but no clear seizure and the EEG is still persisting. He remains intubated on propofol, Precedex, and Versed. The patient is off Levophed for now. CURRENT MEDICATIONS: Include: 1. Heparin 5000 units subcu q.8 hours. 2. Propofol per protocol 21.6 mL/hour. 3. Dexmedetomidine sodium chloride. 4. Maxipime 2 g q.12 hours. 5. Vancomycin. 6. Keppra 1000 mg q.12 hours. 7. Depakote 500 mg q.12 hours. 8. Ativan 2 mg pushes, last push at 10. PHYSICAL EXAMINATION: Vital Signs: 97.5, pulse 61, respirations 24, blood pressure 115/71. Pupils were 2 and sluggish. He is intubated. His upper extremities are both spastic, but he had increased tone in his lower extremities , but not as much as in his upper extremities. At times, he has slight tremor, but it is not correlated with any seizure activity on EEG. Chest: Clear. Cardiovascular: Regular rate and rhythm. LABORATORY DATA: Labs include white count of 12.2 today, hematocrit is 33, platelets 149. Chemistries showed normal CMP. Glucose 115, lactic acid of 1 yesterday, calcium of 8 today. CPK 268. IMPRESSION AND PLAN: Mr. Sanchez appears to be in cephalopathic, presumably from his seizures and from medications he is consuming. He also has spasticity and it is difficult to tell without continuous EEG tracing whether he is having subclinical or clinical seizures and therefore, as we presumably will be in a position within the next day or so to wean him from his respirator and decrease his meds, it would be important for him to be in a facility where he can have more complete monitoring. Dr. Purcell is working with Derrick at this point to have him in a place where he can be better observed. For now, we will continue the Monty and Amanda as is. Thank you for sharing his case. [id number]/[facility] #: [id number] THEODORE
[2019-03-22 14:04] VITALS: BP 114/71
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
[2019-03-23] MEDS ORDERED: Thiamine INJ* 250 MG in NS 0.9% 100 ML* 100 ML IV SCH (11:00)
[2019-03-24] MEDS ORDERED: Vancomycin Trough Check NOTE FOLLOW UP ONE (10:30)
--- NOTE | 2019-03-25 16:09 | EEG ---
ELECTROENCEPHALOGRAPHY: DATE OF STUDY: 03/25/19 - ROOM #ICU-01 PATIENT OF: Dr. Anne and Dr. Purcell. CLINICAL PROBLEM: This is a 49-year-old man who had an unresponsive episode, then had seizure. He had been on Keppra. Depakote has been added and he is on a propofol drip. Other medicines include Maxipime, vancomycin, Protonix. He has received Ativan and Levophed. REPORT: With the patient on a respirator, having some stiffening of his upper extremities. The patient has had background cerebral activity consisting of diffuse irregular delta and theta activity with some admixed alpha range frequencies. The predominant rhythm is delta rhythm. There are periods of relative attenuation lasting 1 to 2 seconds at times. There are no clearcut epileptiform potentials or major asymmetries of background. CLINICAL IMPRESSION: This EEG is abnormal because of diffuse slowing of background and at times relative attenuation. No clearcut seizures were noted. [id number]/[facility] #: [id number] MTDD
== END 2019-03-22 16:00 | disposition short-term general hospital (02) | DRG 100 ==
LOC: ED 16:43 → ICU 19:18
PROVIDERS: ADMIT Internal Medicine; ATTEND Internal Medicine Critical Care Medicine
PROC: 5A1945Z Respiratory Ventilation, 24-96 Consecutive Hours (ICD-10-PCS; principal; 2019-03-20)
PROC: 0BH17EZ Insertion of Endotracheal Airway into Trachea, Via Natural or Artificial Opening (ICD-10-PCS; 2019-03-20)
PROC: 4A00X4Z Measurement of Central Nervous Electrical Activity, External Approach (ICD-10-PCS; 2019-03-21)
PROC: 05HN33Z Insertion of Infusion Device into Left Internal Jugular Vein, Percutaneous Approach (ICD-10-PCS; 2019-03-21)
PROC: B544ZZA Ultrasonography of Left Jugular Veins, Guidance (ICD-10-PCS; 2019-03-21)
PROC: 3E033XZ Introduction of Vasopressor into Peripheral Vein, Percutaneous Approach (ICD-10-PCS; 2019-03-21)
DX: G40.401 Other generalized epilepsy and epileptic syndromes, not intractable, with status epilepticus (principal); J96.01 Acute respiratory failure with hypoxia; R40.2322 Coma scale, best motor response, extension, at arrival to emergency department; R40.2112 Coma scale, eyes open, never, at arrival to emergency department; R40.2212 Coma scale, best verbal response, none, at arrival to emergency department; G82.50 Quadriplegia, unspecified; J96.02 Acute respiratory failure with hypercapnia; M62.82 Rhabdomyolysis; K21.9 Gastro-esophageal reflux disease without esophagitis; R33.9 Retention of urine, unspecified; I10 Essential (primary) hypertension; R00.1 Bradycardia, unspecified; R68.0 Hypothermia, not associated with low environmental temperature; Z87.891 Personal history of nicotine dependence; Z87.820 Personal history of traumatic brain injury
CPT/HCPCS: 36415; 36600; 70450; 71045; 80048; 80053; 80076; 80177; 80202; 80307; 80320; 80329; 81003; 81015; 82140; 82550; 82565; 82803; 83605; 83735; 83935; 84100; 84300; 84443; 84484; 84520; 85025; 87040; 87641; 93005; 94003; 95812; 95822; 99285; A9270-GY; G0480; J0330; J0692; J1644; J1953; J2060; J2250; J2310; J2704; J3010; J3370; J3411; J3475; J3480